=== PATIENT | male | born 1960 | race Caucasian/White ===

== ENCOUNTER 2023-05-19 06:33 | Day surgery (SDC) | payer OTHER, SELFPAY ==
[2023-05-19 06:57] VITALS: BP 146/68; PULSE 75; RESP 18; TEMP 36.2; O2SAT 100; BMI 33.0
[2023-05-19] MEDS: Lactated Ringers 1,000 ML 15 ML IV (07:01)
--- NOTE | 2023-05-19 08:10 | RAD_ITS ---
STUDY: LEFT L4-S1 RADIOFREQUENCY ABLATION. REASON FOR EXAM: Male, 62 years old. RADIO FREQ ABLATION L4-S1,LEFT FLUOROSCOPY TIME (if supplied): ( 13 seconds ) minutes/seconds. 9.15 mGy. 9 images were submitted. FINDINGS: Intraoperative imaging provided for left L4-S1 radiofrequency ablation. RAD/Lumbar Spine 2 or 3 Views IMPRESSION: Intraoperative imaging provided for left L4-S1 radiofrequency ablation. Electronically Signed: Ricardo Redmond MD at 10:09 EST ,
[2023-05-19] MEDS: Lidocaine 1% (30 ml sdv) 30 ML Vial (08:17)
[2023-05-19] MEDS: MethylPREDNISolone Acetate 40 MG/ML Vial IM (08:17)
--- NOTE | 2023-05-19 08:29 | PCM.OPRPT ---
Report of Operation Date of Procedure: 05/19/23 Pre-Operative Diagnosis: Lumbosacral spondylosis, lumbosacral degenerative disc disease, lumbar facet arthropathy Post-Operative Diagnosis: Lumbosacral spondylosis, lumbosacral degenerative disc disease, lumbar facet arthropathy Surgery/Procedure Performed:: Left-sided lumbar radiofrequency ablation of the medial branch L4, L5, S1 Type of Anesthesia: MAC Estimated Blood Loss (mL): Minimal Description of Procedure: History and physical today was reviewed. Risks and benefits of procedure explained. The patient understood, agreed to the procedure and informed consent was obtained. IV inserted per routine protocol. The patient was taken to the operating room, placed in the prone position with a pillow positioned underneath the abdomen. The left side of the lower back was prepped and draped in a sterile fashion using iodine x 3. Under fluoroscopy guidance, on an oblique view, the L3 through S1 vertebral bodies were visualized. The skin and subcutaneous tissue was anesthetized with approximately 10 mL of 1% lidocaine using a 25-gauge regular needle. Under direct visualization with fluoroscopy at approximately 25-degree angle, starting on the left L3, ending on the left S1 passing through the L4-L5 using a 20-gauge 15 cm with a 10 mm curved active tip radiofrequency ablation needle the needle passed through the skin. The tip of the needle was maneuvered and directed towards the superior and medial gutter of the transverse process at the vicinity of the medial branch. Once the tip of the needle was in contact with the bone, the needle pulled approximately 2 mm up the bone. The stylet of each needle was then removed. After negative aspiration of blood with CSF and confirmation of AP as well as oblique view, radiofrequency ablation probe was then inserted at each level. Impedance was then recorded at L3 to be 291, at L4 335, at L5 226, at S1 210 ohm. Motor-evoked potential was then initiated to 1.5 volt without any motor response at each corresponding level. The probe was then removed intact and a total of 6 mL preservative-free 1% lidocaine was injected in divided doses between those 4 levels after negative aspiration of blood with CSF. The radiofrequency ablation probe was then reinserted after confirmation of AP, oblique as well as lateral view. Radiofrequency ablation was then initiated to 80 degrees Celsius for 90 seconds at each level. Once concluded, the probe was then removed intact and a total of 6 mL of preservative-free 0.25% Marcaine with 40 mg Depo-Medrol was injected in divided doses between those 4 levels. The needles were then removed intact. The patient experienced no signs or symptoms of intrathecal, intravascular injection. The patient experienced no paraesthesia. The procedure was completed without any apparent difficulty, any complication. The patient appeared to tolerate well. Sensory as well as motor exam was unchanged from prior to procedure. ASSESSMENT AND PLAN: This is a 62-year-old male with lumbosacral spondylosis, lumbosacral degenerative disc disease, lumbar facet arthropathy, status post left-sided lumbar radiofrequency ablation of the medial branch L4 through S1. The patient will continue his current medications. The patient will follow up in approximately 2 weeks for reevaluation. Complications None
[2023-05-19 08:30] VITALS: BP 134/84; BP 146/68; PULSE 66; RESP 16; TEMP 36.3; O2SAT 96
[2023-05-19 08:35] VITALS: BP 126/85; BP 146/68; PULSE 63; RESP 16; O2SAT 95
[2023-05-19 08:39] VITALS: BP 135/90; BP 146/68; PULSE 87; RESP 16; O2SAT 98
[2023-05-19 08:40] VITALS: BP 138/93; BP 146/68; PULSE 70; RESP 16; TEMP 36.2; O2SAT 98
[2023-05-19 09:02] VITALS: BP 146/68
== END 2023-05-19 09:04 | disposition home or self-care (01) ==
LOC: SDC 06:36 → AC 06:36
PROVIDERS: Referring Provider Anesthesiology Pain Medicine; Visit Provider Anesthesiology Pain Medicine
PROC: (CPT 64635; principal; 2023-05-19 08:25)
DX: M47.816 Spondylosis without myelopathy or radiculopathy, lumbar region (principal); M51.37 Other intervertebral disc degeneration, lumbosacral region; M47.817 Spondylosis without myelopathy or radiculopathy, lumbosacral region; Z87.891 Personal history of nicotine dependence; I25.10 Atherosclerotic heart disease of native coronary artery without angina pectoris; K21.9 Gastro-esophageal reflux disease without esophagitis
CPT/HCPCS: 64635; 64636; 72100; 76000; J7120

== ENCOUNTER 2023-09-15 05:48 | Day surgery (SDC) | payer OTHER, SELFPAY ==
--- OUTSIDE RECORDS SUMMARY | 2023-09-15 06:01 | XMS RPT_ITS | CCD ---
Author Name Unknown Address [address] [place] [address] Organization [facility] Care Team Providers Care Bilingual Medical Assistant Name Role Phone PROVIDER, UNKNOWN Unavailable Unavailable No, PCP Unavailable Unavailable FRANCISCO LOJA Unavailable Unavailable BARRON MACIAS, KOMAL CANNON Primary Care Physician [phone] KOMAL MART MD Primary Care Physician [phone] OPALBERRICK ROSA, MAMIE Primary Care Physician Unavailable Primary Care Provider UnavailRUBIO [place] Attending Unavailable RUBIO GUSMAN Referring Unavailable ROMANA BERRY Attending Unavailable ROMANA BERRY Referring Unavailable CUBBERRICK ROSA, MAMIE Primary Care Physician ANGEL MORALES Admitting Unavailable KOMAL MART MD Consulting Unavailable ANGEL MORALES Attending Unavailable ANGEL MORALES Primary Care Unavailable PROVIDER, UNKNOWN Consulting Unavailable PROVIDER, UNKNOWN Consulting Unavailable PROVIDER, UNKNOWN Consulting Unavailable CUBBERLEY DO, MAMIE Primary Care Unavailable CUBBERLEY DO, MAMIE Attending Unavailable CUBBERLEY DO, MAMIE Primary Care Unavailable CUBBERLEY DO, MAMIE Attending Unavailable CUBBERLEY DO, MAMIE Primary Care Unavailable CUBBERLEY DO, MAMIE Attending Unavailable CUBBERLEY DO, MAMIE Primary Care Unavailable CUBBERLEY DO, MAMIE Attending Unavailable CUBBERLEY DO, MAMIE Primary Care Unavailable ESPERANZA TRAVIS MD Attending Unavailable CUBBERLEY DO, MAMIE Primary Care Unavailable CUBBERLEY DO, MAMIE Attending Unavailable CUBBERLEY DO, MAMIE Primary Care Unavailable ANGELICA MCKEON MD Attending Unavailable CUBBERLEY DO, MAMIE Primary Care Unavailable CUBBERLEY DO, MAMIE Attending Unavailable CUBBERLEY DO, MAMIE Primary Care Unavailable CUBBERLEY DO, MAMIE Attending Unavailable CUBBERLEY DO, MAMIE Primary Care Unavailable CUBBERLEY DO, MAMIE Attending Unavailable CUBBERLEY DO, MAMIE Primary Care Unavailable CUBBERLEY DO, MAMIE Attending Unavailable CUBBERLEY DO, MAMIE Primary Care Unavailable JULIO KATZ Attending Unavailable CUBBERLEY DO, MAMIE Primary Care Unavailable CUBBERLEY DO, MAMIE Attending Unavailable CUBBERLEY DO, MAMIE Primary Care Unavailable MICHEAL MACIAS, DR LEIGH Attending Unavailab le CUBBERLEY DO, MAMIE Primary Care Unavailable MICHEAL MACIAS, DR LEIGH Attending Unavailab le CUBBERLEY DO, MAMIE Primary Care Unavailable MD KELLE PAYAN Attending Unavailable CUBBERLEY DO, MAMIE Primary Care Unavailable CUBBERLEY DO, MAMIE Attending Unavailable CUBBERLEY DO, MAMIE Primary Care Unavailable MICHEAL MACIAS, DR LEIGH Attending Unavailab le CUBBERLEY DO, MAMIE Primary Care Unavailable CUBBERLEY DO, MAMIE Attending Unavailable CUBBERLEY DO, MAMIE Primary Care Unavailable ANGELICA MCKEON MD Attending Unavailable CUBBERLEY DO, MAMIE Primary Care Unavailable CUBBERLEY DO, MAMIE Attending Unavailable CUBBERLEY DO, MAMIE Primary Care Unavailable CUBBERLEY DO, MAMIE Attending Unavailable CUBBERLEY DO, MAMIE Primary Care Unavailable MICHEAL MACIAS, DR LEIGH Attending Unavailab le CUBBERLEY DO, MAMIE Primary Care Unavailable CUBBERLEY DO, MAMIE Attending Unavailable CUBBERLEY DO, MAMIE Primary Care Unavailable CUBBERLEY DO, MAMIE Attending Unavailable CUBBERLEY DO, MAMIE Primary Care Unavailable CUBBERLEY DO, MAMIE Attending Unavailable CUBBERLEY DO, MAMIE Primary Care Unavailable CUBBERLEY DO, MAMIE Attending Unavailable CUBBERLEY DO, MAMIE Primary Care Unavailable CUBBERLEY DO, MAMIE Attending Unavailable CUBBERLEY DO, MAMIE Primary Care Unavailable CUBBERLEY DO, MAMIE Attending Unavailable CUBBERLEY DO, MAMIE Primary Care Unavailable CUBBERLEY DO, MAMIE Attending Unavailable CUBBERLEY DO, MAMIE Primary Care Unavailable CUBBERLEY DO, MAMIE Attending Unavailable CUBBERLEY DO, MAMIE Primary Care Unavailable CUBBERLEY DO, MAMIE Attending Unavailable CUBBERLEY DO, MAMIE Primary Care Unavailable CUBBERLEY DO, MAMIE Attending Unavailable CUBBERLEY DO, MAMIE Primary Care Unavailable CUBBERLEY DO, MAMIE Attending Unavailable NAUN HDEZ MD Attending Unavailable [facility], MAMIE Primary Care Unavailable [facility], MAMIE Primary Care Unavailable MICHEAL MACIAS, DR LEIGH Attending UnavailJOSE [place] Attending Unavailable [facility], MAMIE Primary Care Unavailable [facility], MAMIE Primary Care Unavailable [facility], MAMIE Attending Unavailable Allergies Allergy Classification Reported Allergen(s) Allergy Type Date of Onset Reaction(s) Facility (5 sources) misc non-codified allergy 1 Drug allergy [facility] Medications Current Medications Medication Drug Class(es) Dates Sig (Normalized) Sig (Original) acetaminophen 500 mg oral tablet (20 sources) Start: 05-22-2022 Tylenol Extra Strength 500 mg oral tablet Dose : 1,000 mg = 2 tab(s), Oral, q4h, PRN as needed for pain, 0 Refill(s) Start Date: 05/22/22 Status: Ordered Completed/Discontinued Medications Medication Drug Class(es) Dates Sig (Normalized) Sig (Original) amLODIPine 10 mg oral tablet (9 sources) Dihydropyridine Calcium Channel Melissa Start: 06-28-2022 End: 01-26-2023 amLODIPine 10 mg oral tablet Dose : 10 mg = 1 tab(s), Oral, qDay, # 30 tab(s), 5 Refill(s), Pharmacy: [id number], 177.8, cm, 07/30/22 15:26:00 EST, Height, kg, 07/30/22 15:26:00 EST, Dosing Weight Start Date: 07/30/22 Stop Date: 01/26/23 Status: Ordered Problems Active Problems Problem Classification Problem Date Documented Da te Episodic/Chronic Abdominal pain (5 sources) Abdominal pain; Translations: [Unspecified abdominal pain] Onset: 07-15-2023 Episodic Acute cerebrovascular disease (2 sources) Nontraumatic intracranial hemorrhage, unspecified; Translations: [Nontraumatic intracranial hemorrhage, unspecified] Onset: 11-29-2017 Chronic Calculus of urinary tract (20 sources) History of calculus of kidney; Translations: [Ureteric stone] Onset: 08-03-2023 11-26-2021 Episodic Past or Other Problems Problem Classification Problem Date Documented Date Episodic/Chronic Noninfectious gastroenteritis (14 sources) Chronic diarrhea; Translations: [Noninfective gastroenteritis and colitis, unspecified] Onset: 02-01-2023 01-28-2023 Episodic Other connective tissue disease (2 sources) Cramp and spasm; Translations: [Cramp and spasm] Onset: 01-20-2023 Episodic Other lower respiratory disease (2 sources) Dyspnea, unspecified; Translations: [Dyspnea, unspecified] Onset: 03-19-2023 Episodic Other nervous system disorders (2 sources) Anesthesia of skin; Translations: [Anesthesia of skin] Onset: 01-31-2023 Episodic Results Test Name Value Interpretation Reference Range Facil ity Vital Signs Date Time Vital Sign Value Performing Clinician Faci lity 08-03-2023 16:54-0500 Diastolic Blood Pressure Non-Invasive 87 mm[Hg] NAUN HDEZ MD [address] [place] [address] 08-03-2023 16:54-0500 Heart rate 93 /min NAUN HDEZ MD [address] 08-03-2023 16:54-0500 Respiratory rate 16 /min NAUN HDEZ MD [facility] 08-03-2023 16:54-0500 Systolic Blood Pressure Non-Invasive 141 mm[Hg] NAUN HDEZ MD [facility] 08-03-2023 15:00-0500 Diastolic Blood Pressure Non-Invasive 90 mm[Hg] NAUN HDZE MD [facility] 08-03-2023 15:00-0500 Systolic Blood Pressure Non-Invasive 146 mm[Hg] NAUN HDEZ MD [facility] 08-03-2023 12:19-0500 Body temperature 98.42 [degF] NAUN HDEZ MD [address] 08-03-2023 12:19-0500 Body weight 104.2 kg NAUN HDEZ MD [address] [place] [address] 08-03-2023 12:19-0500 Diastolic Blood Pressure Non-Invasive 101 mm[Hg] NAUN HDEZ MD [address] [place] [address] 08-03-2023 12:19-0500 Heart rate 90 /min NAUN HDEZ MD [facility] 08-03-2023 12:19-0500 Respiratory rate 18 /min NAUN HDEZ MD [facility] 08-03-2023 12:19-0500 Systolic Blood Pressure Non-Invasive 144 mm[Hg] NAUN HDEZ MD [facility] 04-03-2023 06:45-0400 Diastolic Blood Pressure Non-Invasive 94 1 JOSE VIEYRAAskYou [facility] 04-03-2023 06:45-0400 Heart rate 76 /min JOSE VIEYRAAskYou [facility] 04-03-2023 06:45-0400 Respiratory rate 18 /min JOSE RODGERSNubleer Media [facility] 04-03-2023 06:45-0400 Systolic Blood Pressure Non-Invasive 136 1 JOSE VIEYRACswitch [facility] 04-03-2023 05:30-0400 Diastolic Blood Pressure Non-Invasive 83 1 JOSE VIEYRACswitch [facility] 04-03-2023 05:30-0400 Heart rate 67 /min JOSE VIEYRACswitch [facility] 04-03-2023 05:30-0400 Respiratory rate 16 /min JOSE VIEYRACswitch [facility] 04-03-2023 05:30-0400 Systolic Blood Pressure Non-Invasive 122 1 JOSE RODGERSNubleer Media [facility] 04-03-2023 02:36-0400 Diastolic Blood Pressure Non-Invasive 77 1 JOSE VIEYRACswitch [facility] 04-03-2023 02:36-0400 Heart rate 88 /min JOSE VIEYRACswitch [facility] 04-03-2023 02:36-0400 Respiratory rate 18 /min JOSE RODGERSDemi ROSA [facility] 04-03-2023 02:36-0400 Systolic Blood Pressure Non-Invasive 114 1 [facility]ITAL[facility]i [facility] 04-03-2023 00:05-0400 Body temperature 96.8 [degF] [facility] 03-27-2023 10:00-0400 Diastolic Blood Pressure Non-Invasive [address] REESE BURTON MD [address] [place] [address] 03-27-2023 10:00-0400 Heart rate 77 /min DR REESE BURTON MD [address] [place] [address] 03-27-2023 10:00-0400 Systolic Blood Pressure Non-Invasive [address] REESE BURTON MD [address] [place] [address] 03-27-2023 09:22-0400 Blood Pressure Cuff Size DR REESE BURTON MD [address] [place] [address] 03-27-2023 09:22-[address] REESE BURTON MD [address] [place] [address] 03-27-2023 09:22-[address] REESE BURTON MD [address] [place] [address] 03-27-2023 09:22-0400 Diastolic Blood Pressure Non-Invasive [address] REESE BURTON MD [address] [place] [address] 03-27-2023 09:22-0400 Heart rate 74 /min DR REESE BURTON MD [address] [place] [address] 03-27-2023 09:22-0400 Respiratory rate 18 /min DR REESE BURTON MD [address] [place] [address] 03-27-2023 09:22-0400 Systolic Blood Pressure Non-Invasive [address] REESE BURTON MD [address] [place] [address] 03-27-2023 05:12-[address] REESE BURTON MD [address] [place] [address] 03-27-2023 05:12-[address] REESE BURTON MD [address] [place] [address] 03-27-2023 05:12-0400 Body height 177.[address] REESE BURTON MD [address] [place] [address] 03-27-2023 05:12-0400 Body temperature 98.42 [degF] DR REESE BURTON MD [address] [place] [address] 03-27-2023 05:12-0400 Body weight 100.[address] REESE BURTON MD [address] [place] [address] 03-27-2023 05:12-0400 Diastolic Blood Pressure Non-Invasive [address] REESE BURTON MD [address] [place] [address] 03-27-2023 05:12-0400 Heart rate 85 /min DR REESE BURTON MD [address] [place] [address] 03-27-2023 05:12-0400 Respiratory rate 16 /min DR REESE BURTON MD [address] [place] [address] 03-27-2023 05:12-0400 Systolic Blood Pressure Non-Invasive [address] REESE BURTON MD [address] [place] [address] 10-14-2022 16:24-0400 Body temperature 98.1 [degF] Rubio Gusman DIRECTOR OF STUDENT [employer] Work Phone: [facility] 10-14-2022 16:24-0400 Body weight 100.88 kg Rubio Gusman DIRECTOR OF STUDENT [employer] Work Phone: [facility] 10-14-2022 16:24-0400 Diastolic blood pressure 92 mm[Hg] Rubio Gusman DIRECTOR OF STUDENT [employer] Work Phone: [facility] 10-14-2022 16:24-0400 Heart rate 106 /min Rubio Gusman DIRECTOR OF STUDENT [employer] Work Phone: [facility] 10-14-2022 16:24-0400 Respiratory rate 22 /min Rubio Gusman DIRECTOR OF STUDENT [employer] Work Phone: [facility] 10-14-2022 16:24-0400 SaO2% (BldA) [Mass fraction] 95 % Rubio Gusman DIRECTOR OF [employer]UDENT [employer] Work Phone: [facility] 10-14-2022 16:24-0400 Systolic blood pressure 154 mm[Hg] Rubio Gusman DIRECTOR OF STUDENT [employer] Work Phone: [facility] 06-04-2022 04:01-0500 Diastolic Blood Pressure Non-Invasive 65 1 ANGEL MAST MD [facility] 06-04-2022 04:01-0500 Heart rate 95 /min ANGEL MAST MD [facility] 06-04-2022 04:01-0500 Respiratory rate 16 /min ANGEL MAST MD [facility] 06-04-2022 04:01-0500 Systolic Blood Pressure Non-Invasive 90 1 ANGEL MAST MD [facility] 06-04-2022 00:36-0500 Body temperature 97.52 [degF] ANGEL MAST MD [facility] 06-04-2022 00:36-0500 Body weight 90.5 kg ANGEL MAST MD [facility] 06-04-2022 00:36-0500 Diastolic Blood Pressure Non-Invasive 80 1 ANGEL MAST MD [facility] 06-04-2022 00:36-0500 Heart rate 20 /min ANGEL MAST MD [facility] 06-04-2022 00:36-0500 Respiratory rate 20 /min ANGEL MAST MD [facility] 06-04-2022 00:36-0500 Systolic Blood Pressure Non-Invasive 118 1 ANGEL MAST MD [facility] 01-14-2022 20:57-0400 Body temperature 95.72 [degF] CYNDY WHITT MD [facility] 01-14-2022 20:57-0400 Body weight 99.7 kg CYNDY WHITT MD [facility] 01-14-2022 20:57-0400 Diastolic blood pressure 95 mm[Hg] CYNDY WHITT MD [facility] 01-14-2022 20:57-0400 Heart rate 83 /min CYNDY WHITT MD [facility] 01-14-2022 20:57-0400 Respiratory rate 18 /min CYNDY WHITT MD [facility] 01-14-2022 20:57-0400 Systolic blood pressure 156 mm[Hg] CYNDY WHITT MD [facility] Encounters Encounter Date Encounter Type Care Provider Facility Start: 09-12-2023 ambulatory MAMIENELY DALALLEY DO Faci lity:B Start: 09-01-2023 End: 09-01-2023 Emergency department patient visit ANGEL Gtz ANDREW [facility] Start: 08-19-2023 End: 08-24-2023 ambulatory MAMIENELY DALALLEY DO Facility:B Start: 08-19-2023 End: 08-23-2023 Outreach Lab MAMIENELY DALALLEY DO [facility] Start: 08-06-2023 End: 08-11-2023 ambulatory MAMIE OPALBERLEY DO Facility:B Start: 08-06-2023 End: 08-10-2023 Outreach Lab MAMIE DALALLEY DO [facility] Start: 08-03-2023 End: 08-03-2023 Emergency department patient visit NAUN HDEZ MD Facility:A Start: 08-03-2023 End: 08-03-2023 Emergency department patient visit NAUN HDEZ MD [facility] Start: 08-01-2023 End: 08-02-2023 ambulatory MAMIE OPALBERLEY DO Facility:A Start: 08-01-2023 End: 08-05-2023 Outreach Lab MAMIE OPALBERLEY DO [facility] Start: 07-28-2023 End: 08-02-2023 ambulatory MAMIE OPALBERLEY DO Facility:B Start: 07-28-2023 End: 08-01-2023 Outreach Lab MAMIENELY JOSEPHBERLEY DO [facility] Start: 07-18-2023 End: 07-23-2023 ambulatory MAMIE OPLABERLEY DO Facility:B Start: 07-15-2023 ambulatory MAMIE OPALBERLEY DO Faci lity:B Start: 07-15-2023 End: 07-19-2023 Outreach Lab MAMIE OPALBERLEY DO [facility] Start: 07-10-2023 End: 07-15-2023 ambulatory MAMIE OPALBERLEY DO Facility:B Start: 06-12-2023 End: 07-31-2023 ambulatory MAMIE OPALBERLEY DO Facility:A Start: 05-23-2023 End: 05-24-2023 ambulatory MAMIE OPALBERLEY DO Facility:A Start: 05-20-2023 End: 05-21-2023 ambulatory MAMIE OPALBERLEY DO Facility:A Start: 04-23-2023 End: 04-24-2023 ambulatory MAMIE CUBBERLEY DO Facility:A Start: 04-07-2023 End: 04-12-2023 ambulatory MAMIE OPALBERLEY DO Facility:B Start: 04-07-2023 End: 04-11-2023 Outreach Lab MAMIE OPALBERLEY DO [facility] Start: 04-07-2023 End: 04-08-2023 ambulatory MAMIE CUBBERLEY DO Facility:A Start: 04-03-2023 End: 04-03-2023 Emergency department patient visit JOSE ORLANDO Facility:A Start: 04-02-2023 End: 04-03-2023 Emergency department patient visit JOSE ORLANDO DO [facility] Start: 03-27-2023 End: 03-27-2023 ambulatory MAMIE ANGULO DO Facility:A Start: 03-27-2023 End: 03-27-[address] REESE BURTON MD [facility] Start: 03-19-2023 End: 03-24-2023 ambulatory MAMIE ANGULO DO Facility:B Start: 03-19-2023 End: 03-24-2023 ambulatory MAMIE ANGULO DO Facility:A Start: 03-03-2023 End: 03-04-2023 ambulatory MAMIE ANGULO DO Facility:A Start: 03-03-2023 End: 03-03-2023 Patient encounter procedure ESPERANZA TRAVIS MD [facility] Start: 02-17-2023 End: 02-18-2023 ambulatory MAMIE ANGULO DO Facility:A Start: 02-17-2023 End: 02-18-2023 ambulatory MAMIE ANGULO DO Facility:A Start: 02-17-2023 End: 02-17-2023 Patient encounter procedure MAMIE ANGULO DO [facility] Start: 02-05-2023 End: 02-05-2023 ambulatory ROMANAGOPAL CRUZNATALEE Facility:[id number] Start: 02-01-2023 ambulatory MAMIE ANGULO DO Faci lity:B Start: 02-01-2023 End: 02-05-2023 Outreach Lab MAMIE ANGULO DO [facility] Start: 01-31-2023 End: 02-05-2023 ambulatory MAMIE ANGULO DO Facility:B Start: 01-20-2023 End: 01-25-2023 ambulatory MAMIE ANGULO DO Facility:B Start: 01-20-2023 End: 01-24-2023 Outreach Lab MAMIE ANGULO DO [facility] Start: 10-14-2022 End: 10-14-2022 ambulatory RUBIO GUSMAN Facility:[id number] Start: 10-14-2022 End: 10-14-2022 Patient encounter procedure Rubio Gusman DIRECTOR OF [employer] Work Phone: [facility] Procedures Date Procedure Procedure Detail Performing Clinician Start: 03-27-2023 Cardiac catheterization MAMIE ANGULO DO Plan of Treatment Date Care Activity Detail Author Start: 03-14-2023 Influenza vaccination INFLUENZA (Sea son Ended) [facility] Start: 07-14-2022 DEPRESSION ASSESSMENT DEPRESSION ASS ESSMENT [facility] Start: 2017 PROSTATE CANCER SCRE ENING DISCUSSION PROSTATE CANCER SCREENING DISCUSSION [facility] Start: 2012 SHINGRIX VACCINE (1 of 2) SHINGRIX V ACCINE (1 of 2) [facility] Start: 11-24-2007 COLOGUARD (FIT-DNA) COLOGUARD (FIT-D NA) [facility] Start: 11-24-2007 Colonoscopy COLONOSCOPY [facility] Start: 11-24-2007 COLORECTAL CANCER SCREENING COLORECTAL CANCER SCREENING [facility] Start: 11-24-[address] COLONOGRAPHY [facility] Start: 11-24-2007 DIABETES SCREEN DIABETES SCREEN [facility] Start: 11-24-2007 FECAL OCCULT BLOOD FECAL OCCULT BLOO D [facility] Start: 11-24-2007 SIGMOIDOSCOPY SIGMOIDOSCOPY [facility] Start: 1997 LIPID SCREEN LIPID SCREEN [facility] Start: 1981 Urine microalbumin profile DTAP,TDAP ,TD (1 - Tdap) [facility] Start: 1980 HEPATITIS C SCREENING HEPATITIS C SC REENING [facility] Start: 1980 HIV SCREENING HIV SCREENING [facility] Start: 05-26-1963 COVID-19 VACCINE (#1) COVID-19 VACCI NE (#1) [facility] Immunizations Immunization Date Immunization Notes Care Provider Shahrzad perez 02-17-2023 zoster vaccine recombinant; Translations: [Shingrix] MAMIE ANGULO DO [facility] 03-07-2017 tetanus toxoid, reduced diphtheria toxoid, and acellular pertussis vaccine, adsorbed MAMIE ANGULO DO [facility] Payers Date Payer Category Payer Unknown [id number] 2020 Unknown 2020 Unknown [id number] 1962 Unknown [id number] 2.16.8 40.1.690503.3.579.2. 1962 Unknown [id number] 2.16.8 40.1.842932.3.579.2. 1962 Unknown [id number] 2.16.8 40.1.546652.3.579.2. 1962 Unknown [id number] 2.16.8 40.1.396179.3.579.2. 1962 Unknown [id number] 2.16.8 40.1.904233.3.579.2. 1962 Unknown [id number] 2.16.8 40.1.346591.3.579.2. 1962 Unknown [id number] 2.16.8 40.1.599162.3.579.2. 1962 Unknown [id number] 2.16.8 40.1.045517.3.579.2. 1962 Unknown [id number] 2.16.8 40.1.026620.3.579.2. 1962 Unknown [id number] 2.16.8 40.1.894278.3.579.2. 1962 Unknown [id number] 2.16.8 40.1.721593.3.579.2. 1962 Unknown [id number] 2.16.8 40.1.330500.3.579.2. 1962 Unknown [id number] 2.16.8 40.1.138598.3.579.2. 1962 Unknown [id number] 2.16.8 40.1.134995.3.579.2. 1962 Unknown [id number] 2.16.8 40.1.851563.3.579.2. 1962 Unknown [id number] 2.16.8 40.1.311556.3.579.2. 1962 Unknown [id number] 2.16.8 40.1.494446.3.579.2. 1962 Unknown [id number] 2.16.8 40.1.827921.3.579.2. 1962 Unknown [id number] 2.16.8 40.1.724458.3.579.2. 1962 Unknown [id number] 2.16.8 40.1.550513.3.579.2. 1962 Unknown [id number] 2.16.8 40.1.165193.3.579.2. 1962 Unknown [id number] 2.16.8 40.1.652091.3.579.2. 1962 Unknown [id number] 2.16.8 40.1.288077.3.579.2. 1962 Unknown [id number] 2.16.8 40.1.819197.3.579.2. 1962 Unknown [id number] 2.16.8 40.1.435709.3.579.2. 1962 Unknown [id number] 2.16.8 40.1.938714.3.579.2.627 1962 Unknown [id number] 2.16.8 40.1.178015.3.579.2. 1962 Unknown [id number] 2.16.8 40.1.611223.3.579.2. 1962 Unknown [id number] 2.16.8 40.1.227534.3.579.2. 1962 Unknown [id number] 2.16.8 40.1.809270.3.579.2. 1962 Unknown [id number] 2.16.8 40.1.164115.3.579.2. 1962 Unknown [id number] 2.16.8 40.1.390417.3.579.2. 1962 Unknown [id number] 2.16.8 40.1.346956.3.579.2. 1962 Unknown [id number] 2.16.8 40.1.073549.3.579.2. 1962 Unknown [id number] 2.16.8 40.1.188089.3.579.2. 1962 Unknown [id number] 2.16.8 40.1.647129.3.579.2. 1962 Unknown [id number] 2.16.8 40.1.870341.3.579.2. 1962 Unknown [id number] 2.16.8 40.1.853498.3.579.2. 1962 Unknown [id number] 2.16.8 40.1.169981.3.579.2.651 Social History Date Type Detail Facility Start: 06-26-2019 End: 06-19-2021 Ex-smoker (finding) [facility] Functional Status Date Assessment Result Facility 08-03-2023 Functional Status Independent [facility] 08-03-2023 Functional Status Standard Safet y ID band on, Call device within reach, Bed in low position, Wheels locked, Phone within reach, personal items within reach, Bedside Cart Locked, Visitor at bedside, Safety level maintained, Hazards removed from floor [facility] 04-03-2023 Functional Status ID band on, Call device within reach, Bed in low position, Wheels locked [facility] 03-27-2023 Functional Status Independent [facility] 03-27-2023 Functional Status Maintained [facility] 01-14-2022 Functional Status Standard Safet y ID band on, Call device within reach, Bed in low position, Wheels locked, Bedside Cart Locked, Visitor at bedside [facility] Mental Status Date Assessment Result Facility 08-03-2023 Mental Status Orientation Oriented x 4 [facility] 08-03-2023 Mental Status [facility] 04-03-2023 Mental Status Oriented x 4 [facility] 03-27-2023 Mental Status Oriented x 4 [facility] 03-27-2023 Mental Status [facility] 01-14-2022 Mental Status Orientation Oriented x 4 [facility] Clinical Notes 05-23-2021 to 08-03-2023 Note Date & Type Note Facility 08-03-2023 Hospital Discharge instructions Patient Education 08/03/2023 16:37:59 Kidney Stone, Undescended (No Symptoms) Kidney Stone, Undescended, No Symptoms A kidney stone (nephrolithiasis) begins as tiny crystals that form inside the kidney where urine is made. Most kidney stones enlarge to about 1/8 to 1/4 inch in size before leaving the kidney and moving toward the bladder. There are 4 types of kidney stones. Eighty percent are calcium stones mostly calcium oxalate but also some with calcium phosphate. The other 3 types include uric acid stones, struvite stones (from a preceding infection), and rarely, cystine stones. When the stone breaks free and begins to move down the ureter (the narrow tube joining the kidney to the bladder) it often causes sharp back and side pain, often with nausea and vomiting. When the stone reaches the bladder, the pain stops. Once in your bladder, the kidney stone may pass through the urethra (urinary opening) while you are urinating (which may cause pain to start again). Or, it may break into such small fragments that you don t notice it passing. Your kidney stone is still inside the kidney. There is no way to predict how long it will be before it breaks free and causes any symptoms. Most stones will pass on their own within a few hours to a few days (sometimes longer). You may notice a red, pink, or brown color to your urine. This is normal while passing a kidney stone. A large stone may not pass on its own and may require special procedures to remove it. These procedures include lithotripsy, which uses ultrasound waves to break up the stone; ureteroscopy, which pushes a thin, basket-like instrument through the urethra and bladder and into the ureter to pull out the stone; and various types of direct surgery through the skin. Home care The following guidelines will help you care for yourself at home: Drink plenty of fluids. This increases urine flow and reduces the risk of further stone formation. Healthy adults (no heart/liver/kidney disease) who have had a kidney stone should drink 12, 8-ounce glasses of fluids per day. Most of this should be water. The goal is to produce 1.5 to 2 quarts of almost colorless urine per 24 hours. You should collect your urine in a container and then drain it through a strainer to collect any stones or pieces of stones. Take these to your healthcare provider to help identify your specific type of stone to aid in future treatment and dietary changes. Try to stay as active as possible since this will help the stone pass. Don't stay in bed unless you have pain that prevents you from getting up. If you develop pain, you may take ibuprofen or naproxen for pain, unless another medicine was prescribed. If you have chronic liver or kidney disease or ever had a stomach ulcer or GI bleeding, talk with your healthcare provider before using these medicines. Prevention Each year, there is a 5% to 10% chance that a new stone will form (50% chance over the next 5 to 7 years). The risk is higher if you have a family history of kidney stones or have certain chronic illnesses such as hypertension, obesity, or diabetes. However, there are lifestyle and dietary changes that you can make to reduce the risk of a recurrence. Most kidney stones are made of calcium. The following is advice for preventing a recurrence of calcium stones. If you don t know the type of stone you have, follow this advice until the cause of your stone is determined. Things that help: The most important thing you can do is to drink plenty of fluids each day, as described above. Certain foods, such as wheat, rice, rye, barley and beans, contain phytate, a compound that may lower the risk of recurrence of any type of stone. Eat more fruits and vegetables (especially those high in potassium). Eat foods high in natural citrate like fruit and fruit juices (using low sugar). Low calcium contributes to the formation of calcium type kidney stones. Eat a normal calcium diet and speak with your doctor if you are taking calcium supplements. It may be detrimental to reduce your calcium intake. New research shows that eating calcium-rich and oxalate-rich foods together lowers your risk of stones by binding the minerals in the stomach and intestines before they can reach the kidneys. Limit salt intake to 2 grams (1 teaspoon) per day. Use limited amounts when cooking, and don t add salt at the table. Processed and canned foods are usually high in salt. Spinach, rhubarb, peanuts, cashews and almonds, grapefruit and grapefruit juice are all high oxalate foods and should be reduced, or eaten with calcium rich foods. These foods include dairy, dark leafy greens, soy products, and calcium enriched foods. Reducing the amount of animal meat in your diet may lower your risk of uric acid stones. Don't have excess sugar (sucrose) and fructose (sweetener in many soft drinks) in your diet. If you take vitamin C as a supplement, do not take more than 1,000 milligrams (mg) per day. A dietitian or your healthcare provider can provide you with specific details about dietary changes to prevent kidney stone recurrence. Follow-up care Follow up with your healthcare provider, or as advised. Talk with your healthcare provider about urine and blood tests to find out the cause of your stone. If you had an X-ray, CT scan, or other diagnostic test, you will be notified of any findings that may affect your care. Call 911 Call 911 if you have any of these: Weakness, dizziness, or fainting When to seek medical advice Call your healthcare provider right away if any of the these occur: Severe sharp back or side pain Repeated vomiting or unable to keep down fluids Fever of 100.4 F (38 C) or higher, or as directed by your health care provider Blood (pink or red color) in your urine Foul smelling or cloudy urine Unable to pass urine for 8 hours or increasing bladder pressure [employer]. [address] [place] [address]. All rights reserved. This information is not intended as a substitute for professional medical care. Always follow your healthcare professional's instructions. 08/03/2023 16:37:46 Hypokalemia Hypokalemia Hypokalemia means a low level of potassium in the blood. This most often occurs in people who take water pills (diuretics). It can also occur because of severe vomiting or diarrhea. You may also have it if you take laxatives for long periods of time. It sometimes happens if you have low magnesium (hypomagnesemia). If you have this, your healthcare provider will treat the low magnesium first. A mild case of hypokalemia usually causes no symptoms. It is only found with blood testing. More severe potassium loss causes overall weakness, muscle or abdominal cramps, rapid or irregular heartbeats (heart palpitations), low blood pressure, and muscle weakness. Home care Take any potassium supplements as prescribed. Eat foods rich in potassium. The highest amount is found in avocado, baked potatoes, spinach, cantaloupe, cod, halibut, salmon, and scallops. White, red, or gutierrez beans are also very good sources. A modest amount of potassium is found in orange juice, bananas, carrots, and tomato juice. If you take certain types of diuretics, you will also need to take potassium supplements. If you take a diuretic, discuss potassium supplements with your doctor. Follow-up care Follow up with your healthcare provider for a repeat blood test within the next week, or as advised by our staff. When to seek medical advice Call your healthcare provider right away if any of the following occur: Increased weakness, fatigue, or muscle cramps Dizziness Call 911 Call 911 if any of the following occur: Irregular heartbeat, extra beats, or very fast heart rate Loss of consciousness [employer]. [address] [place] [address]. All rights reserved. This information is not intended as a substitute for professional medical care. Always follow your healthcare professional's instructions. 08/03/2023 16:37:44 Hypertension, Established Established High Blood Pressure High blood pressure (hypertension) is a chronic disease. Often, healthcare providers don t know what causes it. But it can be caused by certain health conditions and medicines. If you have high blood pressure, you may not have any symptoms. If you do have symptoms, they may include headache, dizziness, changes in your vision, chest pain, and shortness of breath. But even without symptoms, high blood pressure that s not treated raises your risk for heart attack, heart failure, and stroke. High blood pressure is a serious health risk and shouldn t be ignored. Blood pressure measurements are given as 2 numbers. Systolic blood pressure is the upper number. This is the pressure when the heart contracts. Diastolic blood pressure is the lower number. This is the pressure when the heart relaxes between beats. You will see your blood pressure readings written together. For example, a person with a systolic pressure of 118 and a diastolic pressure of 78 will have 118/78 written in the medical record. Blood pressure is categorized as normal, elevated, or stage 1 or stage 2 high blood pressure: Normal blood pressure is systolic of less than 120 and diastolic of less than 80 (120/80) Elevated blood pressure is systolic of 120 to 129 and diastolic less than 80 Stage 1 high blood pressure is systolic is 130 to 139 or diastolic between 80 to 89 Stage 2 high blood pressure is when systolic is 140 or higher or the diastolic is 90 or higher Home care If you have high blood pressure, follow these home care guidelines to help lower your blood pressure. If you are taking medicines for high blood pressure, these methods may reduce or end your need for medicines in the future. Start a weight-loss program if you are overweight. Cut back on how much salt you get in your diet. Here s how to do this: oDon t eat foods that have a lot of salt. These include olives, pickles, smoked meats, and salted potato chips. oDon t add salt to your food at the table. oUse only small amounts of salt when cooking. Start an exercise program. Talk with your healthcare provider about the type of exercise program that would be best for you. It doesn't have to be hard. Even brisk walking for 20 minutes 3 times a week is a good form of exercise. Don t take medicines that stimulate the heart. This includes many ntjn-bqf-xyduble cold and sinus decongestant pills and sprays, as well as diet pills. Check the warnings about high blood pressure on the label. Before buying any npfz-vlv-sryflav medicines or supplements, always ask the pharmacist about the product's potential interaction with your high blood pressure and your high blood pressure medicines. Stimulants such as amphetamine or cocaine could be deadly for someone with high blood pressure. Never take these. Limit how much caffeine you get in your diet. Switch to caffeine-free products. Stop smoking. If you are a long-time smoker, this can be hard. Talk to your healthcare provider about medicines and nicotine replacement options to help you. Also, enroll in a stop-smoking program to make it more likely that you will quit for good. Learn how to handle stress. This is an important part of any program to lower blood pressure. Learn about relaxation methods like meditation, yoga, or biofeedback. If your provider prescribed medicines, take them exactly as directed. Missing doses may cause your blood pressure get out of control. If you miss a dose or doses, check with your healthcare provider or pharmacist about what to do. Consider buying an automatic blood pressure machine to check your blood pressure at home. Ask your provider for a recommendation. You can get one of these at most pharmacies. The [employer] recommends the following guidelines for home blood pressure monitoring: Don't smoke or drink coffee for 30 minutes before taking your blood pressure. Go to the bathroom before the test. Relax for 5 minutes before taking the measurement. Sit with your back supported (don't sit on a couch or soft chair); keep your feet on the floor uncrossed. Place your arm on a solid flat surface (like a table) with the upper part of the arm at heart level. Place the middle of the cuff directly above the bend of the elbow. Check the monitor's instruction manual for an illustration. Take multiple readings. When you measure, take 2 to 3 readings one minute apart and record all of the results. Take your blood pressure at the same time every day, or as your healthcare provider recommends. Record the date, time, and blood pressure reading. Take the record with you to your next medical appointment. If your blood pressure monitor has a built-in memory, simply take the monitor with you to your next appointment. Call your provider if you have several high readings. Don't be frightened by a single high blood pressure reading, but if you get several high readings, check in with your healthcare provider. Note: When blood pressure reaches a systolic (top number) of 180 or higher OR diastolic (bottom number) of 110 or higher, seek emergency medical treatment. Follow-up care You will need to see your healthcare provider regularly. This is to check your blood pressure and to make changes to your medicines. Make a follow-up appointment as directed. Bring the record of your home blood pressure readings to the appointment. When to seek medical advice Call your healthcare provider right away if any of these occur: Blood pressure reaches a systolic (upper number) of 180 or higher OR a diastolic (bottom number) of 110 or higher Chest pain or shortness of breath Severe headache Throbbing or rushing sound in the ears Nosebleed Sudden severe pain in your belly (abdomen) Extreme drowsiness, confusion, or fainting Dizziness or spinning sensation (vertigo) Weakness of an arm or leg or one side of the face You have problems speaking or seeing [id number] [employer]. [address] [place] [address]. All rights reserved. This information is not intended as a substitute for professional medical care. Always follow your healthcare professional's instructions. 08/03/2023 16:37:37 Flank Pain, Uncertain Cause Flank Pain, Uncertain Cause The flank is the area between your upper abdomen and your back. Pain there is often caused by a problem with your kidneys. It might be a kidney infection or a kidney stone. Other causes of flank pain include spinal arthritis, a pinched nerve from a back injury, or a back muscle strain or spasm. The cause of your flank pain is not certain. You may need other tests. Home care Follow these tips when caring for yourself at home: You may use acetaminophen or ibuprofen to control pain, unless your health care provider prescribed another medicine. If you have chronic liver or kidney disease, talk with your provider before taking these medicines. Also talk with your provider first if you ve ever had a stomach ulcer or GI bleeding. If the pain is coming from your muscles, you may get relief with ice or heat. During the first 2 days after the injury, put an ice pack on the painful area for 20 minutes every 2 to 4 hours. This will reduce swelling and pain. A hot shower, hot bath, or heating pad works well for a muscle spasm. You can start with ice, then switch to heat after 2 days. You might find that alternating ice and heat works well. Use the method that feels the best to you. Follow-up care Follow up with your healthcare provider if your symptoms don t get better over the next few days. When to seek medical advice Call your healthcare provider right away if any of these happen: Repeated vomiting Fever of 100.4 F (38 C) or higher, or as directed by your health care provider Flank pain that gets worse Pain that spreads to the front of your belly (abdomen) Dizziness, weakness, or fainting Blood in your urine Burning feeling when you urinate or the need to urinate often Pain in one of your legs that gets worse Numbness or weakness in a leg [id number] [employer]. [address] [place] [address], [place] [address]. All rights reserved. This information is not intended as a substitute for professional medical care. Always follow your healthcare professional's instructions. 08/03/2023 16:37:29 Nonalcoholic Fatty Liver Disease (NAFLD) Nonalcoholic Fatty Liver Disease (NAFLD) Nonalcoholic fatty liver disease (NAFLD) is a common disease of the liver. It occurs when you have too much fat in the liver. If NAFLD is severe, it can cause liver damage that seems like the damage caused by drinking too much alcohol. But NAFLD is not caused by drinking alcohol. This sheet tells you more about NAFLD and how it can be managed. How the liver works The liver is an organ in the upper right side of the belly (abdomen). It has many important jobs. These include: Breaking down (metabolizing) proteins, carbohydrates, and fats Making a substance called bile that helps break down fats Storing and releasing sugar (glucose) into the blood to give the body energy Removing toxins from the blood Helping with blood clotting Understanding NAFLD A healthy liver may contain some fat. But if too much fat builds up in the liver, this causes NAFLD. NAFLD can be mild, causing fatty liver. Or it can be more severe and show inflammation, as well as the fat. This can cause non-alcoholic steatohepatitis (LEBLANC). Fatty liver. With fatty liver, the liver simply has more fat than normal. This extra fat usually does not harm the liver. LEBLANC. With LEBLANC, the fatty liver becomes inflamed over time. LEBLANC is serious because it can lead to scarring of the liver (fibrosis). Over time, the scarring may lead to cirrhosis of the liver. This can eventually cause liver failure or liver cancer. Causes and risk factors of NAFLD Doctors don't know what causes NAFLD. But certain things make the problem more likely to happen. These include: Obesity Prediabetes or diabetes High levels of fat found in the blood (cholesterol and triglycerides) Being exposed to certain medicines Symptoms of NAFLD Most people with NAFLD have no symptoms. If symptoms do occur, they can include: Tiredness Weakness Weight loss Loss of appetite Nausea and vomiting Belly pain and cramping Yellowing of the skin and eyes (jaundice), as well as dark urine, or light-colored stools Swelling in the belly or legs Diagnosing NAFLD Your healthcare provider may think you have NAFLD if routine blood tests show high levels of liver enzymes. This may mean you have a liver problem. You may need one or more imaging tests, such as an ultrasound, CT, or MRI. You may need more blood tests to look for other causes of liver disease. You may also need a liver biopsy. During this test, a hollow needle is used to remove a tiny tissue sample from your liver. This tissue is then checked in a lab. This test can find signs of damage to liver tissue. It can also help figure out the cause of the damage and tell the difference between fatty liver and LEBLANC. Treating NAFLD Treatment for NAFLD varies for each person. The best early treatment is to treat any underlying conditions causing metabolic syndrome. This is the name for a group of conditions that includes: High blood pressure High levels of cholesterol and triglycerides Being overweight or obese Diabetes Your healthcare provider will monitor your health and treat any symptoms or underlying health problems you have. Your provider will also work with you to control your risk factors. This will make liver damage less likely. In fact, treating those underlying conditions can often improve liver disease. You may need to take certain medicines, but no medicine will cure NAFLD. This is why treating the underlying conditions is most important. Your plan may include: Losing extra weight Getting regular exercise Controlling diabetes and high cholesterol or triglyceride levels Taking medicines and vitamins as prescribed by your provider Quitting smoking Not drinking alcohol Eating a healthy and balanced diet Living with NAFLD If NAFLD is caught early, it can be managed with treatment. Your healthcare provider will discuss further treatment choices with you as needed. Be sure to ask your provider about recommended vaccines. These include vaccines for viruses that can cause liver disease. [id number] [employer]. [address] [place] [address]. All rights reserved. This information is not intended as a substitute for professional medical care. Always follow your healthcare professional's instructions. Follow Up Care 08/03/2023 12:18:35 With:MAMIE ANGULO Address: [address] [place] [address] [address] [place] [address]- [phone] Business (1) When:2-4 days Comments:Schedule appointment as soon as possibleReturn to ED if symptoms worsenStop hydrochlorothiazide discussed with your primary care doctor potential alternative for your blood pressureCall in a.m. for close follow-up for repeat potassiumMay use your Flexeril and Tylenol [facility] 08-03-2023 Emergency department Discharge summary Discharge Instructions Thank you for allowing [facility] to assist you with your healthcare needs. The following is important discharge information regarding your hospital visit. Diagnosis from Today's Visit Fatty liver Flank pain Flank pain Hypertension Hypokalemia Kidney stone What to Do Next Instructions from Your Care Team No qualifying data available. Post Acute Orders No qualifying data available. You Need to Schedule the Following Appointments Follow Up with MAMIE ANGULO When Within 2-4 days Why: Schedule appointment as soon as possible Return to ED if symptoms worsen Stop hydrochlorothiazide discussed with your primary care doctor potential alternative for your blood pressure Call in a.m. for close follow-up for repeat potassium May use your Flexeril and Tylenol Where: [address] [place] [address] [address] [place] [address] [phone] Business (1) Allergies [facility] Medications Please ask your primary doctor or pharmacist before taking any other medication not listed, including over the counter drugs, herbal medications, vitamins and or supplements as they may interact with your home medications. What How Much When Instructions Last Dose Unchanged acetaminophen (Tylenol Extra Strength 500 mg oral tablet) 2 tab(s) by mouth Every 4 hours as needed for as needed for pain Unchanged aspirin (aspirin 81 mg oral delayed release tablet) 1 tab(s) by mouth Every day Duration: 30 Days Unchanged atorvastatin (atorvastatin 40 mg oral tablet) 1 tab(s) by mouth Daily at bedtime Duration: 90 Days Unchanged carvedilol (Coreg 3.125 mg oral tablet) 1 tab(s) by mouth Twice daily with meals Duration: 30 Days Unchanged cholecalciferol (cholecalciferol 50 mcg (2000 intl units) oral tablet) 1 tab(s) by mouth Every day Duration: 30 Days Unchanged cyanocobalamin (cyanocobalamin 100 mcg oral tablet) 1 tab(s) by mouth Once a day Duration: 90 Days Unchanged ferrous sulfate (ferrous sulfate 325 mg (65 mg elemental iron) oral delayed release tablet) 1 tab(s) by mouth Every other day Duration: 30 Days Unchanged furosemide (Lasix 20 mg oral tablet) 1 tab(s) by mouth Once a day Unchanged gabapentin (gabapentin 400 mg oral capsule) 1 cap by mouth Three (3) times a day Unchanged glucosamine (glucosamine 1000 mg oral capsule) 3 cap by mouth Once a day with meals Unchanged hydroCHLOROthiazide (hydroCHLOROthiazide 12.5 mg oral capsule) 1 cap by mouth Once a day Unchanged hydroCHLOROthiazide (hydroCHLOROthiazide 25 mg oral tablet) 1 tab(s) by mouth Once a day Unchanged loratadine (loratadine 10 mg oral capsule) 1 cap by mouth Once a day Duration: 90 Days Unchanged montelukast (montelukast 10 mg oral tablet) 1 tab(s) by mouth Once a day Duration: 90 Days Unchanged omeprazole (omeprazole 20 mg oral delayed release capsule) 1 cap by mouth Once a day Duration: 90 Days Unchanged potassium chloride (Potassium Chloride (Eqv-K-Tab) 20 mEq oral tablet, extended release) 1 tab(s) by mouth Two (2) times a day Duration: 30 Days Take with food. Dose has been increased to 20 Eq BID Unchanged tamsulosin (tamsulosin 0.4 mg oral capsule) 1 cap by mouth Once a day Please take this list to your next doctor s visit. Bring all medications you take, including over the counter medications, herbals and other supplements with you to your doctor s visit. Patients and families are reminded to discard old lists and to update any records with all medication providers or retail pharmacies. Education Materials Kidney Stone, Undescended, No Symptoms A kidney stone (nephrolithiasis) begins as tiny crystals that form inside the kidney where urine is made. Most kidney stones enlarge to about 1/8 to 1/4 inch in size before leaving the kidney and moving toward the bladder. There are 4 types of kidney stones. Eighty percent are calcium stones mostly calcium oxalate but also some with calcium phosphate. The other 3 types include uric acid stones, struvite stones (from a preceding infection), and rarely, cystine stones. When the stone breaks free and begins to move down the ureter (the narrow tube joining the kidney to the bladder) it often causes sharp back and side pain, often with nausea and vomiting. When the stone reaches the bladder, the pain stops. Once in your bladder, the kidney stone may pass through the urethra (urinary opening) while you are urinating (which may cause pain to start again). Or, it may break into such small fragments that you don t notice it passing. Your kidney stone is still inside the kidney. There is no way to predict how long it will be before it breaks free and causes any symptoms. Most stones will pass on their own within a few hours to a few days (sometimes longer). You may notice a red, pink, or brown color to your urine. This is normal while passing a kidney stone. A large stone may not pass on its own and may require special procedures to remove it. These procedures include lithotripsy, which uses ultrasound waves to break up the stone; ureteroscopy, which pushes a thin, basket-like instrument through the urethra and bladder and into the ureter to pull out the stone; and various types of direct surgery through the skin. Home care The following guidelines will help you care for yourself at home: Drink plenty of fluids. This increases urine flow and reduces the risk of further stone formation. Healthy adults (no heart/liver/kidney disease) who have had a kidney stone should drink 12, 8-ounce glasses of fluids per day. Most of this should be water. The goal is to produce 1.5 to 2 quarts of almost colorless urine per 24 hours. You should collect your urine in a container and then drain it through a strainer to collect any stones or pieces of stones. Take these to your healthcare provider to help identify your specific type of stone to aid in future treatment and dietary changes. Try to stay as active as possible since this will help the stone pass. Don't stay in bed unless you have pain that prevents you from getting up. If you develop pain, you may take ibuprofen or naproxen for pain, unless another medicine was prescribed. If you have chronic liver or kidney disease or ever had a stomach ulcer or GI bleeding, talk with your healthcare provider before using these medicines. Prevention Each year, there is a 5% to 10% chance that a new stone will form (50% chance over the next 5 to 7 years). The risk is higher if you have a family history of kidney stones or have certain chronic illnesses such as hypertension, obesity, or diabetes. However, there are lifestyle and dietary changes that you can make to reduce the risk of a recurrence. Most kidney stones are made of calcium. The following is advice for preventing a recurrence of calcium stones. If you don t know the type of stone you have, follow this advice until the cause of your stone is determined. Things that help: The most important thing you can do is to drink plenty of fluids each day, as described above. Certain foods, such as wheat, rice, rye, barley and beans, contain phytate, a compound that may lower the risk of recurrence of any type of stone. Eat more fruits and vegetables (especially those high in potassium). Eat foods high in natural citrate like fruit and fruit juices (using low sugar). Low calcium contributes to the formation of calcium type kidney stones. Eat a normal calcium diet and speak with your doctor if you are taking calcium supplements. It may be detrimental to reduce your calcium intake. New research shows that eating calcium-rich and oxalate-rich foods together lowers your risk of stones by binding the minerals in the stomach and intestines before they can reach the kidneys. Limit salt intake to 2 grams (1 teaspoon) per day. Use limited amounts when cooking, and don t add salt at the table. Processed and canned foods are usually high in salt. Spinach, rhubarb, peanuts, cashews and almonds, grapefruit and grapefruit juice are all high oxalate foods and should be reduced, or eaten with calcium rich foods. These foods include dairy, dark leafy greens, soy products, and calcium enriched foods. Reducing the amount of animal meat in your diet may lower your risk of uric acid stones. Don't have excess sugar (sucrose) and fructose (sweetener in many soft drinks) in your diet. If you take vitamin C as a supplement, do not take more than 1,000 milligrams (mg) per day. A dietitian or your healthcare provider can provide you with specific details about dietary changes to prevent kidney stone recurrence. Follow-up care Follow up with your healthcare provider, or as advised. Talk with your healthcare provider about urine and blood tests to find out the cause of your stone. If you had an X-ray, CT scan, or other diagnostic test, you will be notified of any findings that may affect your care. Call 911 Call 911 if you have any of these: Weakness, dizziness, or fainting When to seek medical advice Call your healthcare provider right away if any of the these occur: Severe sharp back or side pain Repeated vomiting or unable to keep down fluids Fever of 100.4 F (38 C) or higher, or as directed by your health care provider Blood (pink or red color) in your urine Foul smelling or cloudy urine Unable to pass urine for 8 hours or increasing bladder pressure 2484-2860 [employer]. [address] [place] [address]. All rights reserved. This information is not intended as a substitute for professional medical care. Always follow your healthcare professional's instructions. Hypokalemia Hypokalemia means a low level of potassium in the blood. This most often occurs in people who take water pills (diuretics). It can also occur because of severe vomiting or diarrhea. You may also have it if you take laxatives for long periods of time. It sometimes happens if you have low magnesium (hypomagnesemia). If you have this, your healthcare provider will treat the low magnesium first. A mild case of hypokalemia usually causes no symptoms. It is only found with blood testing. More severe potassium loss causes overall weakness, muscle or abdominal cramps, rapid or irregular heartbeats (heart palpitations), low blood pressure, and muscle weakness. Home care Take any potassium supplements as prescribed. Eat foods rich in potassium. The highest amount is found in avocado, baked potatoes, spinach, cantaloupe, cod, halibut, salmon, and scallops. White, red, or gutierrez beans are also very good sources. A modest amount of potassium is found in orange juice, bananas, carrots, and tomato juice. If you take certain types of diuretics, you will also need to take potassium supplements. If you take a diuretic, discuss potassium supplements with your doctor. Follow-up care Follow up with your healthcare provider for a repeat blood test within the next week, or as advised by our staff. When to seek medical advice Call your healthcare provider right away if any of the following occur: Increased weakness, fatigue, or muscle cramps Dizziness Call 911 Call 911 if any of the following occur: Irregular heartbeat, extra beats, or very fast heart rate Loss of consciousness [id number] [employer] [facility]. [address] [place], [place] [id number]. All rights reserved. This information is not intended as a substitute for professional medical care. Always follow your healthcare professional's instructions. Established High Blood Pressure High blood pressure (hypertension) is a chronic disease. Often, healthcare providers don t know what causes it. But it can be caused by certain health conditions and medicines. If you have high blood pressure, you may not have any symptoms. If you do have symptoms, they may include headache, dizziness, changes in your vision, chest pain, and shortness of breath. But even without symptoms, high blood pressure that s not treated raises your risk for heart attack, heart failure, and stroke. High blood pressure is a serious health risk and shouldn t be ignored. Blood pressure measurements are given as 2 numbers. Systolic blood pressure is the upper number. This is the pressure when the heart contracts. Diastolic blood pressure is the lower number. This is the pressure when the heart relaxes between beats. You will see your blood pressure readings written together. For example, a person with a systolic pressure of 118 and a diastolic pressure of 78 will have 118/78 written in the medical record. Blood pressure is categorized as normal, elevated, or stage 1 or stage 2 high blood pressure: Normal blood pressure is systolic of less than 120 and diastolic of less than 80 (120/80) Elevated blood pressure is systolic of 120 to 129 and diastolic less than 80 Stage 1 high blood pressure is systolic is 130 to 139 or diastolic between 80 to 89 Stage 2 high blood pressure is when systolic is 140 or higher or the diastolic is 90 or higher Home care If you have high blood pressure, follow these home care guidelines to help lower your blood pressure. If you are taking medicines for high blood pressure, these methods may reduce or end your need for medicines in the future. Start a weight-loss program if you are overweight. Cut back on how much salt you get in your diet. Here s how to do this: oDon t eat foods that have a lot of salt. These include olives, pickles, smoked meats, and salted potato chips. oDon t add salt to your food at the table. oUse only small amounts of salt when cooking. Start an exercise program. Talk with your healthcare provider about the type of exercise program that would be best for you. It doesn't have to be hard. Even brisk walking for 20 minutes 3 times a week is a good form of exercise. Don t take medicines that stimulate the heart. This includes many bexw-vmr-pittzhe cold and sinus decongestant pills and sprays, as well as diet pills. Check the warnings about high blood pressure on the label. Before buying any rxbn-etn-dmlpwcj medicines or supplements, always ask the pharmacist about the product's potential interaction with your high blood pressure and your high blood pressure medicines. Stimulants such as amphetamine or cocaine could be deadly for someone with high blood pressure. Never take these. Limit how much caffeine you get in your diet. Switch to caffeine-free products. Stop smoking. If you are a long-time smoker, this can be hard. Talk to your healthcare provider about medicines and nicotine replacement options to help you. Also, enroll in a stop-smoking program to make it more likely that you will quit for good. Learn how to handle stress. This is an important part of any program to lower blood pressure. Learn about relaxation methods like meditation, yoga, or biofeedback. If your provider prescribed medicines, take them exactly as directed. Missing doses may cause your blood pressure get out of control. If you miss a dose or doses, check with your healthcare provider or pharmacist about what to do. Consider buying an automatic blood pressure machine to check your blood pressure at home. Ask your provider for a recommendation. You can get one of these at most pharmacies. The [employer] [employer] recommends the following guidelines for home blood pressure monitoring: Don't smoke or drink coffee for 30 minutes before taking your blood pressure. Go to the bathroom before the test. Relax for 5 minutes before taking the measurement. Sit with your back supported (don't sit on a couch or soft chair); keep your feet on the floor uncrossed. Place your arm on a solid flat surface (like a table) with the upper part of the arm at heart level. Place the middle of the cuff directly above the bend of the elbow. Check the monitor's instruction manual for an illustration. Take multiple readings. When you measure, take 2 to 3 readings one minute apart and record all of the results. Take your blood pressure at the same time every day, or as your healthcare provider recommends. Record the date, time, and blood pressure reading. Take the record with you to your next medical appointment. If your blood pressure monitor has a built-in memory, simply take the monitor with you to your next appointment. Call your provider if you have several high readings. Don't be frightened by a single high blood pressure reading, but if you get several high readings, check in with your healthcare provider. Note: When blood pressure reaches a systolic (top number) of 180 or higher OR diastolic (bottom number) of 110 or higher, seek emergency medical treatment. Follow-up care You will need to see your healthcare provider regularly. This is to check your blood pressure and to make changes to your medicines. Make a follow-up appointment as directed. Bring the record of your home blood pressure readings to the appointment. When to seek medical advice Call your healthcare provider right away if any of these occur: Blood pressure reaches a systolic (upper number) of 180 or higher OR a diastolic (bottom number) of 110 or higher Chest pain or shortness of breath Severe headache Throbbing or rushing sound in the ears Nosebleed Sudden severe pain in your belly (abdomen) Extreme drowsiness, confusion, or fainting Dizziness or spinning sensation (vertigo) Weakness of an arm or leg or one side of the face You have problems speaking or seeing [id number] [employer]. [address] [place] [address]. All rights reserved. This information is not intended as a substitute for professional medical care. Always follow your healthcare professional's instructions. Flank Pain, Uncertain Cause The flank is the area between your upper abdomen and your back. Pain there is often caused by a problem with your kidneys. It might be a kidney infection or a kidney stone. Other causes of flank pain include spinal arthritis, a pinched nerve from a back injury, or a back muscle strain or spasm. The cause of your flank pain is not certain. You may need other tests. Home care Follow these tips when caring for yourself at home: You may use acetaminophen or ibuprofen to control pain, unless your health care provider prescribed another medicine. If you have chronic liver or kidney disease, talk with your provider before taking these medicines. Also talk with your provider first if you ve ever had a stomach ulcer or GI bleeding. If the pain is coming from your muscles, you may get relief with ice or heat. During the first 2 days after the injury, put an ice pack on the painful area for 20 minutes every 2 to 4 hours. This will reduce swelling and pain. A hot shower, hot bath, or heating pad works well for a muscle spasm. You can start with ice, then switch to heat after 2 days. You might find that alternating ice and heat works well. Use the method that feels the best to you. Follow-up care Follow up with your healthcare provider if your symptoms don t get better over the next few days. When to seek medical advice Call your healthcare provider right away if any of these happen: Repeated vomiting Fever of 100.4 F (38 C) or higher, or as directed by your health care provider Flank pain that gets worse Pain that spreads to the front of your belly (abdomen) Dizziness, weakness, or fainting Blood in your urine Burning feeling when you urinate or the need to urinate often Pain in one of your legs that gets worse Numbness or weakness in a leg [id number] [employer]. [address] [place], [place] [address]. All rights reserved. This information is not intended as a substitute for professional medical care. Always follow your healthcare professional's instructions. Nonalcoholic Fatty Liver Disease (NAFLD) Nonalcoholic fatty liver disease (NAFLD) is a common disease of the liver. It occurs when you have too much fat in the liver. If NAFLD is severe, it can cause liver damage that seems like the damage caused by drinking too much alcohol. But NAFLD is not caused by drinking alcohol. This sheet tells you more about NAFLD and how it can be managed. How the liver works The liver is an organ in the upper right side of the belly (abdomen). It has many important jobs. These include: Breaking down (metabolizing) proteins, carbohydrates, and fats Making a substance called bile that helps break down fats Storing and releasing sugar (glucose) into the blood to give the body energy Removing toxins from the blood Helping with blood clotting Understanding NAFLD A healthy liver may contain some fat. But if too much fat builds up in the liver, this causes NAFLD. NAFLD can be mild, causing fatty liver. Or it can be more severe and show inflammation, as well as the fat. This can cause non-alcoholic steatohepatitis (LEBLANC). Fatty liver. With fatty liver, the liver simply has more fat than normal. This extra fat usually does not harm the liver. LEBLANC. With LEBLANC, the fatty liver becomes inflamed over time. LEBLANC is serious because it can lead to scarring of the liver (fibrosis). Over time, the scarring may lead to cirrhosis of the liver. This can eventually cause liver failure or liver cancer. Causes and risk factors of NAFLD Doctors don't know what causes NAFLD. But certain things make the problem more likely to happen. These include: Obesity Prediabetes or diabetes High levels of fat found in the blood (cholesterol and triglycerides) Being exposed to certain medicines Symptoms of NAFLD Most people with NAFLD have no symptoms. If symptoms do occur, they can include: Tiredness Weakness Weight loss Loss of appetite Nausea and vomiting Belly pain and cramping Yellowing of the skin and eyes (jaundice), as well as dark urine, or light-colored stools Swelling in the belly or legs Diagnosing NAFLD Your healthcare provider may think you have NAFLD if routine blood tests show high levels of liver enzymes. This may mean you have a liver problem. You may need one or more imaging tests, such as an ultrasound, CT, or MRI. You may need more blood tests to look for other causes of liver disease. You may also need a liver biopsy. During this test, a hollow needle is used to remove a tiny tissue sample from your liver. This tissue is then checked in a lab. This test can find signs of damage to liver tissue. It can also help figure out the cause of the damage and tell the difference between fatty liver and LEBLANC. Treating NAFLD Treatment for NAFLD varies for each person. The best early treatment is to treat any underlying conditions causing metabolic syndrome. This is the name for a group of conditions that includes: High blood pressure High levels of cholesterol and triglycerides Being overweight or obese Diabetes Your healthcare provider will monitor your health and treat any symptoms or underlying health problems you have. Your provider will also work with you to control your risk factors. This will make liver damage less likely. In fact, treating those underlying conditions can often improve liver disease. You may need to take certain medicines, but no medicine will cure NAFLD. This is why treating the underlying conditions is most important. Your plan may include: Losing extra weight Getting regular exercise Controlling diabetes and high cholesterol or triglyceride levels Taking medicines and vitamins as prescribed by your provider Quitting smoking Not drinking alcohol Eating a healthy and balanced diet Living with NAFLD If NAFLD is caught early, it can be managed with treatment. Your healthcare provider will discuss further treatment choices with you as needed. Be sure to ask your provider about recommended vaccines. These include vaccines for viruses that can cause liver disease. [id number] [employer]. [address] [place] [address]. All rights reserved. This information is not intended as a substitute for professional medical care. Always follow your healthcare professional's instructions. Additional Information VACCINATE! IT SAVES LIVES! Members of the community who have not yet received the COVID-19 vaccine and would like to receive it can visit one of [facility] vaccine clinics. There are many vaccine clinic locations within the [facility]. For locations and available times, please visit [email or web address] It is important to note that some COVID mobile vaccine clinics are held outdoors and may be canceled in rainy or stormy conditions. To learn more about pediatric vaccinations (ages 5-11), we invite you to visit the [facility] webpage. [email or web address] [email or web address] To learn more about the COVID-19 vaccine, we invite you to visit the CDC website for a list of frequently asked questions. https://www.cdc.gov/coronavirus/20 19-ncov/vaccines/faq.html [facility] Patient Portal Access Instructions: Stay connected with your healthcare team and access your personal medical information anytime with the [facility] Patient Portal. If you would like a full copy of your medical records please contact the [facility] Medical Records Department Friday through Friday between 8a.m. and 4:30p.m. Please follow the directions below to access the portal: 1.Access the email account you provided upon registration to the hospital.2.Look for an invitation email from [facility].3.Open the email and access the invitation link: Accept Invitation to [facility].Fill in the required hernandes to create your account. Sign into [email or web address] with your username and password that you created in the above steps to stay up to date. You can then view a summary of results, a summary of your visits, and the ability to download your summaries to your computer or send the information securely to a physician. Remember that your healthcare information is confidential, so carefully consider who you will allow to register on the [employer] [facility] Patient Portal for access to your information. You can also access the [employer] [facility] Patient Portal on the [employer] ru. Simply click on Health Records under Health Data and then click on the [employer] logo. HOW TO SAFELY DISPOSE OF PRESCRIPTION MEDICATIONS Please use one of the following methods to safely dispose of your unused medications. 1.Use a drug disposal kit: the drug disposal pouch allows you to safely discard your old and unused drugs. Ask your nurse to give you one when you are discharged.2.Visit a local take-back location: Many local pharmacies and police departments have programs that collect old and unwanted prescription drugs. Call your local pharmacy or go to http://Recovers/5C3Hj2f to find one close to you.3.Make use of household items: Use cat litter or old coffee grounds to dispose medications if other options are not available. Mix your drugs with these household products, seal them in an airtight container and throw it into the garbage. Call [facility]: [phone] to be sure your drugs can be disposed of in this way. Some medicines may require a different approach.4.Never flush your medications down the toilet. IF YOU HAVE BEEN PRESCRIBED AN OPIOIDS FOR PAIN If you have been prescribed an opioid (such as hydrocodone, oxycodone or morphine), it is critical to understand the possible side effects and risks of opioid pain medications. Even when taken as directed, opioids can have several side effects including: Tolerance, meaning you might need to take more of a medication for the same pain relief. Nausea, vomiting and/or constipation. Sleepiness, dizziness, dry mouth, confusion, depression or itching. Physical dependence, meaning you have withdrawal symptoms when a medication is stopped ? this can develop within a few days. KNOW YOUR RESPONSIBILITIES It is important to know exactly how much and how often to take the opioid pain medications you are prescribed. Never take opioids in higher amounts or more often than prescribed. Do not combine opioids with alcohol or other drugs that cause drowsiness, such as benzodiazepines, also known as benzos, including diazepam and alprazolam, muscle relaxants or sleep aids. Never sell or share prescription opioids. This is illegal. Store opioids in a secure place and out of reach of others (including children, family, friends and visitors). The last page(s) of this document has been signed and retained as a CHART COPY Signatures Patient Education Materials Kidney Stone, Undescended (No Symptoms) Hypokalemia Hypertension, Established Flank Pain, Uncertain Cause Nonalcoholic Fatty Liver Disease (NAFLD) Medication Leaflets My discharge plan and instructions have been reviewed and explained to me and I,GARCIA LINWOOD E understand my current condition and have read and understand these discharge instructions. I have received a written copy of the plan/instructions. If I have questions, I am aware that I should contact my doctor. 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 This exam was performed according to our departmental dose optimization program, and includes the following measures where applicable: automated exposure control, adjustment of the mAs and/or kVp according to patient size and/or exam, and an iterative reconstruction algorithm. FINDINGS: There is fatty infiltration of the liver. There is a punctate calcification in the left kidney. There are no ureteral or right renal stones. There is a hypodensity in the left lobe of the liver, too small to characterize further, there is fatty infiltration of the liver. The remaining abdominal organs are unremarkable in appearance. Bowel is poorly evaluated in the absence of oral contrast. A normal appendix is identified. There is no free fluid. IMPRESSION: Punctate left renal calcification. No signs of recent stone passage. Interpreted by: Shilo Rowan MD Preliminary Report By: Shilo Rowan MD Electronically signed By Shilo Rowan MD Dictated Date: 08/03/2023 2:48:46 PM Prelim Date: 08/03/2023 2:52:17 PM Sign Date: 08/03/2023 2:52:17 PM Ordering Provider: BRAYAN GILL [facility] 07-20-2023 Note . MICRO - Microbiology PROCEDURE: Stool Culture [^1 *1] SOURCE: Stool BODY SITE: COLLECTED DATE/TIME: 07/15/2023 15:24 EST RECEIVED DATE/TIME: 07/16/2023 14:44 EST START DATE/TIME: 07/16/2023 14:44 EST FREE TEXT SOURCE: FINAL REPORTS Final Report [] Verified Date/Time/Personnel: 07/20/2023 07:22 EST Normal stool omer present. Salmonella: Negative Shigella: Negative Campylobacter: Negative PRELIMINARY REPORTS Preliminary Report [] Verified Date/Time/Personnel: 07/18/2023 10:25 EST Normal stool omer present. Negative for stool pathogens at 48 hours. Final report to follow. Interpretive Data ^1: Culture Stool Requests for alternative pathogens including Yersinia, E. coli 0157, C. difficile toxin, Rotavirus, Giardia and parasites require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 for professional medical care. Always follow yourhealthcare professional's instructions. Myalgias Myalgias are another word for muscle aches and soreness. This is a symptom, not a disease. Myalgiascan have many causes. A cold, the flu, or an acute infection can cause them. So can any illness with a high fever. They may happen after exertion (such as heavy exercise) or injury (such as an accident or fall). Some medicines (such as statins and certain antidepressants) can cause myalgias. They can also be a symptom of chronic or ongoing medical problems (such as lupus, chronic fatigue, or hypothyroidism). With these illnesses, other serious symptoms often occur in addition to muscle pain andsoreness. Myalgias most often go away on their own. If they don't go away, come back, or are severe, testing may be needed to help find the cause. Home care Rest until you feel better. Follow instructions that you were given for how to care for yourself. This may depend on the cause of your myalgias. If myalgia is thought to be due to a medicine, be sure to talk to the doctor that prescribed the medicine about the best course of action. To control pain, take prescription or cnou-wwu-khamnvb medicines as directed. Unless told not to, you can try acetaminophen or ibuprofen. Follow-up care Follow up with your healthcare provider or as advised. If your symptoms do not go away in a few days or if they come back, follow up with your healthcare provider for an exam and testing. When to see medical advice Call your healthcare provider for any of the following: Fever of 100.4 F (38 C) or higher, or as directed by your healthcare provider Pain that gets worse and not better, or that goes away and comes back New joint pains New rash Severe headache, neck pain, drowsiness, or confusion 7618-7985 [employer]. [address] [place] [address]. All rights reserved. This information is not intended as a substitute for professional medical care. Always follow yourhealthcare professional's instructions. Additional Information VACCINATE! IT SAVES LIVES! Members of the community who have not yet received the COVID-19 vaccine and would like to receive it can visit one of [facility] vaccine clinics. There are many vaccine clinic locations within the [facility]. For locations and available times, please visit [email or web address]. It is important to note that some COVID mobile vaccine clinics are held outdoors and may be canceled in rainy orstormy conditions. To learn more about pediatric vaccinations (ages 5-11), we invite you to visit the [facility] webpage. [email or web address]/[email or web address]-[email or web address] [email or web address].htmlTo learn more about the COVID-19 vaccine, we invite you to visit the [employer] website for a list of frequently asked questions. [email or web address] _[email or web address] [facility] [employer] Patient Portal Access Instructions: Stay connected with your healthcare team and access your personal medical information anytime with the [facility] Patient Portal. If you would like a full copy of your medical records please contact the [facility] Medical Records Department Friday through Friday between 8a.m. and 4:30p.m. Please follow the directions below to access the portal: 1.Access the email account you provided upon registration to the [facility].2.Look for an invitation email from [facility].3.Open the email and access the invitation link: Accept Invitation to [facility]4.Fill in the required hernandes to create your account. Sign into [email or web address] with your username and password that you created in the above steps to stay up to date. You can then view a summary of results, a summary of your visits, and the ability to download your summaries to your computer or send the information securely to a physician. Remember that your healthcare information is confidential, so carefully consider who you will allow to register on the [facility] [employer] Patient Portal for access to your information. You can also access the [facility] Patient Portal on the [employer] ru. Simply click on Health Records under [place] and then click on the [facility] logo. HOW TO SAFELY DISPOSE OF PRESCRIPTION MEDICATIONS Please use one of the following methods to safely dispose of your unused medications. 1.Use a drug disposal kit: the drug disposal pouch allows you to safely discard your old and unuseddrugs. Ask your nurse to give you one when you are discharged.2.Visit a local take-back location: Many local pharmacies and police departments have programs that collect old and unwanted prescriptiondrugs. Call your local pharmacy or go to http://bit.CHOBOLABS/2J3Oe1r to find one close to you.3.Make use of household items: Use cat litter or old coffee grounds to dispose medications if other options arenot available. Mix your drugs with these household products, seal them in an airtight container andthrow it into the garbage. Call [facility]: [phone] to be sure your drugs can be disposed of in this way. Some medicines may require a different approach.4.Never flush your medications down the toilet. IF YOU HAVE BEEN PRESCRIBED AN OPIOIDS FOR PAIN If you have been prescribed an opioid (such as hydrocodone, oxycodone or morphine), it is critical to understand the possible side effects and risks of opioid pain medications. Even when taken as directed, opioids can have several side effects including: Tolerance, meaning you might need to take more of a medication for the same pain relief. Nausea, vomiting and/or constipation. Sleepiness, dizziness, dry mouth, confusion, depression or itching. Physical dependence, meaning you have withdrawal symptoms when a medication is stopped ? this can develop within a few days. KNOW YOUR RESPONSIBILITIES It is important to know exactly how much and how often to take the opioid pain medications you are prescribed. Never take opioids in higher amounts or more often than prescribed. Do not combine opioids with alcohol or other drugs that cause drowsiness, such as benzodiazepines, also known as benzos,including diazepam and alprazolam, muscle relaxants or sleep aids. Never sell or share prescriptionopioids. This is illegal. Store opioids in a secure place and out of reach of others (including children, family, friends and visitors). The last page(s) of this document has been signed and retained as a CHART COPY Signatures Patient Education Materials Radiculopathy, Cervical Myalgias Medication Leaflets My discharge plan and instructions have been reviewed and explained to me and I,LINWOOD ZELAYA understand my current condition and have read and understand these discharge instructions. I have receiveda written copy of the plan/instructions. If I have questions, I am aware that I should contact my do ctor. Patient/Caster Operator Signature: Date/Time: Relationship to Patient: Witness Name/Signature: Date/Time: [id number] Summary note Discharge Instructions Thank you for allowing [facility] to assist you with your healthcare needs. The following is importantdischarge information regarding your hospital visit. Diagnosis from Today's Visit Myalgia Neck pain Shoulder pain What to Do Next Instructions from Your Care Team No qualifying data available. Post Acute Orders No qualifying data available. You Need to Schedule the Following Appointments Follow Up with Go to emergency room if symptoms worsen When Within 2-4 days Follow Up with KOMAL MART MD When Within 2-4 days Where: [address] [facility] [address] [place] [address]- Allergies NKA Medications Please ask your primary doctor or pharmacist before taking any other medication not listed, including over the counter drugs, herbal medications, vitamins and or supplements as they may interact withyour home medications. What How Much When Why Instructions Last Dose New acetaminophen-oxyCODONE (Percocet 5 mg-325 mg oral tablet) 1 tab(s) by mouth Every 4 hours as needed for as needed for pain Myalgia Duration: 2 Days Printed Prescription New methylPREDNISolone (Medrol Dosepak 4 mg oral tablet) Per Dosepak Instructions by mouth Every day Printed Prescription Unchanged ascorbic acid/ chondroitin/ glucosa/ clarence (Glucosamine Chondroitin oral capsule) 1 cap by mouth Once a day Unchanged cyclobenzaprine (cyclobenzaprine 10 mg oral tablet) 1 tab(s) by mouth Every day as needed for Pain Unchanged finasteride (finasteride 5 mg oral tablet) 1 tab(s) by mouth Once a day Elevated PSA, less than 10 ng/ml. Neg bx in 08/2019, 01/2021 (cognitive fusion), 06/2021 (UroNav fusion). 48cc by MRI. PSAD - 0.5. MRI, 01/2021 - PIRADS 4, right mid TZ. PSA - 24 / 7% (12/2020). Adopted. Duration: 90 Days Unchanged loratadine-pseudoephedrine (Claritin-D 24 Hour oral tablet, extended release) 1 tab(s) by mouth Every day Unchanged multivitamin (Vitamin B Complex oral capsule) 1 cap by mouth Once a day Unchanged omeprazole (omeprazole 20 mg oral delayed release capsule) 1 cap by mouth Once a day TAKE ONE CAPSULE BY MOUTH EVERY DAY Unchanged tamsulosin (Flomax 0.4 mg oral capsule) 1 cap by mouth Once a day will get refills at Please take this list to your next doctor s visit. Bring all medications you take, including over the counter medications, herbals and other supplements with you to your doctor s visit. Patients and families are reminded to discard old lists and to update any records with all medication providers or retail pharmacies. Education Materials Myalgias Myalgias are another word for muscle aches and soreness. This is a symptom, not a disease. Myalgiascan have many causes. A cold, the flu, or an acute infection can cause them. So can any illness with a high fever. They may happen after exertion (such as heavy exercise) or injury (such as an accident or fall). Some medicines (such as statins and certain antidepressants) can cause myalgias. They can also be a symptom of chronic or ongoing medical problems (such as lupus, chronic fatigue, or hypothyroidism). With these illnesses, other serious symptoms often occur in addition to muscle pain andsoreness. Myalgias most often go away on their own. If they don't go away, come back, or are severe, testing may be needed to help find the cause. Home care Rest until you feel better. Follow instructions that you were given for how to care for yourself. This may depend on the cause of your myalgias. If myalgia is thought to be due to a medicine, be sure to talk to the doctor that prescribed the medicine about the best course of action. To control pain, take prescription or alwh-vyr-jltyqgn medicines as directed. Unless told not to, you can try acetaminophen or ibuprofen. Follow-up care Follow up with your healthcare provider or as advised. If your symptoms do not go away in a few days or if they come back, follow up with your healthcare provider for an exam and testing. When to see medical advice Call your healthcare provider for any of the following: Fever of 100.4 F (38 C) or higher, or as directed by your healthcare provider Pain that gets worse and not better, or that goes away and comes back New joint pains New rash Severe headache, neck pain, drowsiness, or confusion [id number] [employer]. [address] [place] [address], [place] [address]. All rights reserved. This information is not intended as a substitute for professional medical care. Always follow yourhealthcare professional's instructions. Additional Information VACCINATE! IT SAVES LIVES! Members of the community who have not yet received the COVID-19 vaccine and would like to receive it can visit one of [facility] vaccine clinics. There are many vaccine clinic locations within the [facility]. For locations and available times, please visit [email or web address]. It is important to note that some COVID mobile vaccine clinics are held outdoors and may be canceled in rainy orstormy conditions. To learn more about pediatric vaccinations (ages 5-11), we invite you to visit the [facility] webpage. [email or web address]/[email or web address] [email or web address].htmlTo learn more about the COVID-19 vaccine, we invite you to visit the [facility] website for a list of frequently asked questions. [email or web address] [facility] Patient Portal Access Instructions: Stay connected with your healthcare team and access your personal medical information anytime with the [facility] Patient Portal. If you would like a full copy of your medical records please contact the [facility] Medical Records Department Friday through Friday between 8a.m. and 4:30p.m. Please follow the directions below to access the portal: 1.Access the email account you provided upon registration to the hospital.2.Look for an invitation email from [facility].3.Open the email and access the invitation link: Accept Invitation to [facility]4.Fill in the required hernandes to create your account. Sign into [email or web address] with your username and password that you created in the above steps to stay up to date. You can then view a summary of results, a summary of your visits, and the ability to download your summaries to your computer or send the information securely to a physician. Remember that your healthcare information is confidential, so carefully consider who you will allow to register on the [facility] Patient Portal for access to your information. You can also access the [facility] Patient Portal on the [employer] ru. Simply click on Health Records under [place] and then click on the [employer] logo. HOW TO SAFELY DISPOSE OF PRESCRIPTION MEDICATIONS Please use one of the following methods to safely dispose of your unused medications. 1.Use a drug disposal kit: the drug disposal pouch allows you to safely discard your old and unuseddrugs. Ask your nurse to give you one when you are discharged.2.Visit a local take-back location: Many local pharmacies and police departments have programs that collect old and unwanted prescriptiondrugs. Call your local pharmacy or go to http://Housebites.CHOBOLABS/6B2Zl0x to find one close to you.3.Make use of household items: Use cat litter or old coffee grounds to dispose medications if other options arenot available. Mix your drugs with these household products, seal them in an airtight container andthrow it into the garbage. Call [facility]: [phone] to be sure your drugs can be disposed of in this way. Some medicines may require a different approach.4.Never flush your medications down the toilet. IF YOU HAVE BEEN PRESCRIBED AN OPIOIDS FOR PAIN If you have been prescribed an opioid (such as hydrocodone, oxycodone or morphine), it is critical to understand the possible side effects and risks of opioid pain medications. Even when taken as directed, opioids can have several side effects including: Tolerance, meaning you might need to take more of a medication for the same pain relief. Nausea, vomiting and/or constipation. Sleepiness, dizziness, dry mouth, confusion, depression or itching. Physical dependence, meaning you have withdrawal symptoms when a medication is stopped ? this can develop within a few days. KNOW YOUR RESPONSIBILITIES It is important to know exactly how much and how often to take the opioid pain medications you are prescribed. Never take opioids in higher amounts or more often than prescribed. Do not combine opioids with alcohol or other drugs that cause drowsiness, such as benzodiazepines, also known as benzos,including diazepam and alprazolam, muscle relaxants or sleep aids. Never sell or share prescriptionopioids. This is illegal. Store opioids in a secure place and out of reach of others (including children, family, friends and visitors). The last page(s) of this document has been signed and retained as a CHART COPY Signatures Patient Education Materials Myalgias Medication Leaflets My discharge plan and instructions have been reviewed and explained to me and GARCIA Zarate SETH E understand my current condition and have read and understand these discharge instructions. I have receiveda written copy of the plan/instructions. If I have questions, I am aware that I should contact my do ctor. Patient/Caster Operator Signature: Date/Time: Relationship to Patient: Witness Name/Signature: Date/Time: [id number] Note ORIGINAL EXAMINATION: CT OF THE CERVICAL SPINE WITHOUT CONTRAST 01/14/2022 10:41 pm TECHNIQUE: CT of the cervical spine was performed without the administration of intravenous contrast. Multiplanar reformatted images are provided for review. Automated exposure control, iterative reconstruction, and/or weight based adjustment of the mA/kV was utilized to reduce the radiation dose to as low as reasonably achievable. COMPARISON: None. HISTORY: ORDERING SYSTEM PROVIDED HISTORY: Reason for Exam: severe left side neck pain radiating into left arm pain FINDINGS: BONES/ALIGNMENT: There is no acute fracture or traumatic malalignment. DEGENERATIVE CHANGES: Moderate degenerative disc and facet disease affects C5-6 and C6-7 with mild bilateral neural foraminal encroachment. No central spinal stenosis observed. SOFT TISSUES: There is no prevertebral soft tissue swelling. IMPRESSION: No acute abnormality of the cervical spine. Degenerative disc and facet disease C5-6 and C6-7. Interpreted by: Asa Mullins DO Preliminary Report By: Asa Mullins DO Electronically signed By Asa Mullins DO Dictated Date: 01/14/2022 10:44:46 PM Prelim Date: 01/14/2022 10:47:16 PM Sign Date: 01/14/2022 10:47:16 PM Ordering Provider: JIM CANNON [id number] Note ORIGINAL EXAMINATION: CT OF THE CERVICAL SPINE WITHOUT CONTRAST 01/14/2022 10:41 pm TECHNIQUE: CT of the cervical spine was performed without the administration of intravenous contrast. Multiplanar reformatted images are provided for review. Automated exposure control, iterative reconstruction, and/or weight based adjustment of the mA/kV was utilized to reduce the radiation dose to as low as reasonably achievable. COMPARISON: None. HISTORY: ORDERING SYSTEM PROVIDED HISTORY: Reason for Exam: severe left side neck pain radiating into left arm pain FINDINGS: BONES/ALIGNMENT: There is no acute fracture or traumatic malalignment. DEGENERATIVE CHANGES: Moderate degenerative disc and facet disease affects C5-6 and C6-7 with mild bilateral neural foraminal encroachment. No central spinal stenosis observed. SOFT TISSUES: There is no prevertebral soft tissue swelling. IMPRESSION: No acute abnormality of the cervical spine. Degenerative disc and facet disease C5-6 and C6-7. Interpreted by: Asa Mullins DO Preliminary Report By: Asa Mullins DO Electronically signed By Asa Mullins DO Dictated Date: 01/14/2022 10:44:46 PM Prelim Date: 01/14/2022 10:47:16 PM Sign Date: 01/14/2022 10:47:16 PM Ordering Provider: JIM [facility]11-10-2021 Evaluation + Plan note Future Scheduled Tests Laboratory* Basic Metabolic Panel 05/23/21 * Complete Blood Count 05/23/21 [facility] Evaluation + Plan note Future Appointments Appointment Date:05/23/2021 03:30:00 PM Scheduled Provider:BRAYAN COLE MD Location:[facility] Appointment Type:[facility] OV Diagnostic Tests Pending * PSA, Free 05/21/21 [facility] Evaluation + Plan note Future Appointments Appointment Date:06/29/2021 03:00:00 PM Scheduled Provider:BRAYAN COLE MD Location:[facility] Appointment Type:[facility] Talk [facility] Evaluation + Plan note Future Appointments Appointment Date:12/26/2021 03:20:00 PM Scheduled Provider:BRAYAN COLE MD Location:UROLOGY Appointment Type:URO OV Future Scheduled Tests Laboratory* Prostate Specific Antigen 12/26/21 [facility] Evaluation + Plan note Future Appointments Appointment Date:02/06/2022 02:30:00 PM Scheduled Provider:BRAYAN COLE MD Location:UROLOGY Appointment Type:URO [facility] Evaluation + Plan note Future Appointments Appointment Date:01/17/2022 01:45:00 PM Scheduled Provider: Location:[facility] Appointment Type:PT Treatment - Jessica Appointment Date:01/21/2022 01:45:00 PM Scheduled Provider: Location:[facility] Appointment Type:PT Treatment - Friendly Appointment Date:01/23/2022 01:45:00 PM Scheduled Provider: Location:[facility] Appointment Type:PT Treatment - [place] Appointment Date:02/20/2022 08:50:00 AM Scheduled Provider:BRAYAN COLE MD Location:UROLOGY Appointment Type:URO [facility] evaluation + Plan note Future Appointments Appointment Date:08/26/2022 01:00:00 PM Scheduled Provider:BRAYAN COLE MD Location:UROLOGY Appointment Type:URO OV Future Scheduled Tests Laboratory* Prostate Specific Antigen 08/23/22 [facility] Evaluation + Plan note Future Appointments Appointment Date:04/24/2022 08:15:00 AM Scheduled Provider: Location:[facility] Appointment Type:PT Outpatient Evaluation Appointment Date:08/26/2022 01:00:00 PM Scheduled Provider:BRAYAN COLE MD Location:UROLOGY Appointment Type:URO OV Future Scheduled Tests Laboratory* Prostate Specific Antigen 08/23/22 [facility] Evaluation + Plan note Future Appointments Appointment Date:05/29/2022 08:00:00 AM Scheduled Provider: Location:[facility] Appointment Type:PC Nurse BP Check Appointment Date:05/29/2022 08:45:00 AM Scheduled Provider: Location:[facility] Appointment Type:PT Treatment - Riesel Appointment Date:05/31/2022 09:15:00 AM Scheduled Provider: Location:[facility] Appointment Type:PT Treatment - Riesel Appointment Date:06/03/2022 03:45:00 PM Scheduled Provider: Location:[facility] Appointment Type:PT Treatment - Riesel Appointment Date:06/04/2022 11:30:00 AM Scheduled Provider:MAMIE ANGULO DO Location:[facility] Appointment Type:PC OV Discuss Test Results Appointment Date:06/05/2022 04:30:00 PM Scheduled Provider: Location:[facility] Appointment Type:PT Treatment - Riesel Appointment Date:06/10/2022 03:45:00 PM Scheduled Provider: Location:[facility] Appointment Type:PT Treatment - R[place]el Appointment Date:06/11/2022 03:45:00 PM Scheduled Provider:Padmini Fuller PTA 2553 Location:[facility] Appointment Type:PT Treatment - Riesel Appointment Date:06/13/2022 03:45:00 PM Scheduled Provider: Location:[facility] Appointment Type:PT Treatment - Riesel Appointment Date:08/23/2022 03:30:00 PM Scheduled Provider:MAMIE ANGULO DO Location:[facility] Appointment Type:PC OV Follow Up Appointment Date:08/26/2022 01:00:00 PM Scheduled Provider:BRAYAN COLE MD Location:UROLOGY Appointment Type:URO OV Future Scheduled Tests Laboratory* Prostate Specific Antigen 08/23/22 [facility] Evaluation + Plan note Future Appointments Appointment Date:06/05/2022 04:30:00 PM Scheduled Provider: Location:[facility] Appointment Type:PT Treatment - Riesel Appointment Date:06/10/2022 03:45:00 PM Scheduled Provider: Location:[facility] Appointment Type:PT Treatment - Riesel Appointment Date:06/11/2022 03:45:00 PM Scheduled Provider:Padmini Fuller PTA 2553 Location:[facility] Appointment Type:PT Treatment - Riesel Appointment Date:06/13/2022 03:00:00 PM Scheduled Provider:MAMIE ANGULO DO Location:[facility] Appointment Type:PC OV Discuss Test Results Appointment Date:06/13/2022 03:45:00 PM Scheduled Provider: Location:[facility] Appointment Type:PT Treatment - Riesel Appointment Date:06/17/2022 03:45:00 PM Scheduled Provider: Location:[facility] Appointment Type:PT Treatment - Riesel Appointment Date:06/18/2022 03:45:00 PM Scheduled Provider:Padmini Fuller PTA 2553 Location:[facility] Appointment Type:PT Treatment - Riesel Appointment Date:06/19/2022 03:45:00 PM Scheduled Provider: Location:[facility] Appointment Type:PT Treatment - Riesel Appointment Date:06/24/2022 03:45:00 PM Scheduled Provider: Location:[facility] Appointment Type:PT Treatment - Riesel Appointment Date:06/26/2022 03:45:00 PM Scheduled Provider: Location:[facility] Appointment Type:PT Treatment - Riesel Appointment Date:06/27/2022 03:30:00 PM Scheduled Provider: Location:[facility] Appointment Type:PT Treatment - Riesel Appointment Date:07/01/2022 03:45:00 PM Scheduled Provider:Padmini Fuller PTA 2553 Location:[facility] Appointment Type:PT Treatment - Riesel Appointment Date:07/02/2022 03:45:00 PM Scheduled Provider:Padmini Fuller PTA 2553 Location:[facility] Appointment Type:PT Treatment - Riesel Appointment Date:07/04/2022 03:30:00 PM Scheduled Provider: Location:[facility] Appointment Type:PT Treatment - Riesel Appointment Date:07/09/2022 03:30:00 PM Scheduled Provider: Location:[facility] Appointment Type:PT Treatment - Riesel Appointment Date:07/11/2022 03:30:00 PM Scheduled Provider: Location:[facility] Appointment Type:PT Treatment - Riesel Appointment Date:08/23/2022 03:30:00 PM Scheduled Provider:MAMIE ANGULO DO Location:[facility] Appointment Type:PC OV Follow Up Appointment Date:08/26/2022 01:00:00 PM Scheduled Provider:BRAYAN COLE MD Location:UROLOGY Appointment Type:URO OV Future Scheduled Tests Laboratory* Prostate Specific Antigen 08/23/22 [facility] Evaluation + Plan note Future Appointments Appointment Date:07/03/2022 03:45:00 PM Scheduled Provider: Location:[facility] Appointment Type:PT Treatment - Riesel Appointment Date:07/04/2022 03:30:00 PM Scheduled Provider: Location:[facility] Appointment Type:PT Treatment - Riesel Appointment Date:07/09/2022 03:30:00 PM Scheduled Provider: Location:[facility] Appointment Type:PT Treatment - Riesel Appointment Date:07/11/2022 03:30:00 PM Scheduled Provider: Location:[facility] Appointment Type:PT Treatment - Riesel Appointment Date:07/30/2022 03:30:00 PM Scheduled Provider:MAMIE ANGULO DO Location:[facility] Appointment Type:PC OV Follow Up Appointment Date:08/23/2022 03:30:00 PM Scheduled Provider:MAMIE ANGULO DO Location:[facility] [place] Appointment Type:PC OV Follow Up Appointment Date:08/26/2022 01:00:00 PM Scheduled Provider:BRAYAN COLE MD Location:UROLOGY Appointment Type:URO OV Future Scheduled Tests Laboratory* Prostate Specific Antigen 08/23/22 [facility] Evaluation + Plan note Future Appointments Appointment Date:08/26/2022 07:45:00 AM Scheduled Provider:Padmini Fuller PTA 2553 Location:[facility] Appointment Type:PT Treatment - Riesel Appointment Date:08/27/2022 02:20:00 PM Scheduled Provider:JULIO KATZ Location:UROLOGY Appointment Type:URO OV 20 min Appointment Date:08/28/2022 03:00:00 PM Scheduled Provider:Padmini Fuller PTA 2553 Location:[facility] Appointment Type:PT Treatment - R[place]el Appointment Date:08/29/2022 03:00:00 PM Scheduled Provider:Padmini Fuller PTA 2553 Location:[facility] Appointment Type:PT Treatment - R[place]el Appointment Date:01/28/2023 03:00:00 PM Scheduled Provider:MAMIE ANGULO DO Location:[facility] Appointment Type:PC Wellness Annual w/Labs Future Scheduled Tests Laboratory* Lipid Profile 01/27/23 [facility] Evaluation + Plan note Future Appointments Appointment Date:08/28/2022 03:00:00 PM Scheduled Provider:Padmini Fuller PTA 2553 Location:[facility] Appointment Type:PT Treatment - Riesel Appointment Date:08/29/2022 03:00:00 PM Scheduled Provider:Padmini Fuller PTA 2553 Location:[facility] Appointment Type:PT Treatment - [place]el Appointment Date:01/28/2023 03:00:00 PM Scheduled Provider:MAMIE ANGULO DO Location:[facility] Appointment Type:PC Wellness Annual w/Labs Appointment Date:03/03/2023 02:30:00 PM Scheduled Provider:ESPERANZA TRAVIS MD Location:UROLOGY Appointment Type:URO OV 20 min Future Scheduled Tests Laboratory* Prostate Specific Antigen 02/24/23 * Lipid Profile 01/27/23 [facility] Evaluation + Plan note Future Appointments Appointment Date:01/28/2023 03:00:00 PM Scheduled Provider:MAMIE ANGULO DO Location:[facility] Appointment Type:PC Wellness Annual w/Labs Appointment Date:03/03/2023 02:30:00 PM Scheduled Provider:ESPERANZA TRAVIS MD Location:UROLOGY Appointment Type:URO OV 20 min Future Scheduled Tests Laboratory* Basic Metabolic Panel 01/28/23 * Prostate Specific Antigen 02/24/23 [facility] Evaluation + Plan note Future Appointments Appointment Date:02/10/2023 04:00:00 PM Scheduled Provider: Location:[facility] Appointment Type:PC Nurse Injection Appointment Date:02/13/2023 04:00:00 PM Scheduled Provider:MAMIE ANGULO DO Location:[facility] Appointment Type:PC Wellness Annual w/Labs Appointment Date:02/17/2023 08:30:00 AM Scheduled Provider: Location:[facility] Appointment Type:NM Myocardial Spect Rest/Stress Appointment Date:03/03/2023 02:30:00 PM Scheduled Provider:ESPERANZA TRAVIS MD Location:UROLOGY Appointment Type:URO OV 20 min Diagnostic Tests Pending * Elasetase, Fecal 02/01/23 * Ova & Parasite exam 02/01/23 Future Scheduled Tests Laboratory* Basic Metabolic Panel 01/28/23 * Prostate Specific Antigen 02/24/23 * Lipid Profile 04/30/23 Radiology* NM Myocardial Spect Rest/Stress 02/17/23 [facility] Evaluation + Plan note Future Appointments Appointment Date:02/24/2023 04:00:00 PM Scheduled Provider: Location:[facility] Appointment Type:PC Nurse Injection Appointment Date:03/03/2023 02:30:00 PM Scheduled Provider:ESPERANZA TRAVIS MD Location:UROLOGY Appointment Type:URO OV 20 min Appointment Date:03/04/2023 04:00:00 PM Scheduled Provider: Location:[facility] Appointment Type:PC Nurse Injection Future Scheduled Tests Laboratory* Basic Metabolic Panel 01/28/23 * Vitamin B12 Level 04/15/23 * Lipid Profile 04/30/23 [facility] Evaluation + Plan note Future Appointments Appointment Date:03/04/2023 04:00:00 PM Scheduled Provider: Location:[facility] [place] Appointment Type:PC Nurse Injection Appointment Date:03/08/2024 03:20:00 PM Scheduled Provider:ESPERANZA TRAVIS MD Location:UROLOGY Appointment Type:URO OV Future Scheduled Tests Laboratory* Basic Metabolic Panel 01/28/23 * Prostate Specific Antigen 03/03/24 * Vitamin B12 Level 04/15/23 * Lipid Profile 04/30/23 [facility] Evaluation + Plan note Future Appointments Appointment Date:04/15/2023 04:00:00 PM Scheduled Provider:MAMIE ANGULO DO Location:[facility] [place] Appointment Type:PC OV Lab Check Appointment Date:04/23/2023 03:30:00 PM Scheduled Provider: Location:[facility] Appointment Type:CV OV Appointment Date:05/23/2023 03:00:00 PM Scheduled Provider: Location:[facility] Appointment Type:CV Procedure - Echo (Adult) Appointment Date:03/08/2024 03:20:00 PM Scheduled Provider:ESPERANZA TRAVIS MD Location:UROLOGY Appointment Type:URO OV Diagnostic Tests Pending * Complete Blood Count 03/27/23 Future Scheduled Tests Laboratory* Basic Metabolic Panel 01/28/23 * Prostate Specific Antigen 03/03/24 * Vitamin B12 Level 04/15/23 * Lipid Profile 04/30/23 * Complete Metabolic Panel 03/07/23 [facility] Evaluation + Plan note Future Appointments Appointment Date:04/15/2023 04:00:00 PM Scheduled Provider:MAMIE ANGULO DO Location:[facility] Appointment Type:PC OV Lab Check Appointment Date:04/23/2023 03:30:00 PM Scheduled Provider: Location:[facility] Appointment Type:CV OV Appointment Date:05/23/2023 03:00:00 PM Scheduled Provider: Location:[facility] Appointment Type:CV Procedure - Echo (Adult) Appointment Date:03/08/2024 03:20:00 PM Scheduled Provider:ESPERANZA TRAVIS MD Location:UROLOGY Appointment Type:URO OV Future Scheduled Tests Laboratory* Basic Metabolic Panel 01/28/23 * Prostate Specific Antigen 03/03/24 * Vitamin B12 Level 04/15/23 * Lipid Profile 04/30/23 * Complete Metabolic Panel 03/07/23 [facility] Evaluation + Plan note Future Appointments Appointment Date:04/15/2023 04:00:00 PM Scheduled Provider:MAMIE ANGULO DO Location:[facility] Appointment Type:PC OV Lab Check Appointment Date:04/23/2023 03:30:00 PM Scheduled Provider: Location:[facility] Appointment Type:CV OV Appointment Date:05/23/2023 03:00:00 PM Scheduled Provider: Location:[facility] Appointment Type:CV Procedure - Echo (Adult) Appointment Date:03/08/2024 03:20:00 PM Scheduled Provider:ESPERANZA TRAVIS MD Location:UROLOGY Appointment Type:URO OV Future Scheduled Tests Laboratory* Prostate Specific Antigen 03/03/24 * Lipid Profile 04/30/23 * Complete Metabolic Panel 03/07/23 [facility] Evaluation + Plan note Future Appointments Appointment Date:07/21/2023 03:45:00 PM Scheduled Provider:Padmini Fuller PTA 2553 Location:[facility] Appointment Type:PT Treatment - R[place]el Appointment Date:07/24/2023 03:45:00 PM Scheduled Provider:Padmini Fuller PTA 2553 Location:[facility] Appointment Type:PT Treatment - R[place]el Appointment Date:08/12/2023 02:00:00 PM Scheduled Provider:MAMIE ANGULO DO Location:[facility] Appointment Type:PC OV Lab Check Appointment Date:10/15/2023 04:00:00 PM Scheduled Provider:MAMIE ANGULO DO Location:[facility] Appointment Type:PC OV Follow Up Appointment Date:03/08/2024 03:20:00 PM Scheduled Provider:ESPERANZA TRAVIS MD Location:UROLOGY Appointment Type:URO OV Diagnostic Tests Pending * Ova + Parasite Exam 07/15/23 Future Scheduled Tests Laboratory* Potassium Level 07/25/23 * Iron Level 06/24/23 * Prostate Specific Antigen 03/03/24 * APTT Panel 07/10/23 * Prothrombin Time - Panel 07/10/23 * Vitamin D Level 06/24/23 * Complete Metabolic Panel 03/07/23 [facility] Evaluation + Plan note Future Appointments Appointment Date:08/12/2023 02:00:00 PM Scheduled Provider:MAMIE ANGULO DO Location:[facility] Appointment Type:PC OV Lab Check Appointment Date:10/15/2023 04:00:00 PM Scheduled Provider:MAMIE ANGULO DO Location:[facility] Appointment Type:PC OV Follow Up Appointment Date:03/08/2024 03:20:00 PM Scheduled Provider:ESPERANZA TRAVIS MD Location:UROLOGY Appointment Type:URO OV Future Scheduled Tests Laboratory* Iron Level 06/24/23 * Prostate Specific Antigen 03/03/24 * APTT Panel 07/10/23 * Prothrombin Time - Panel 07/10/23 * Vitamin D Level 06/24/23 * Complete Metabolic Panel 03/07/23 [facility] Evaluation + Plan note Future Appointments Appointment Date:08/12/2023 02:00:00 PM Scheduled Provider:MAMIE ANGULO DO Location:[facility] [place] Appointment Type:PC OV Lab Check Appointment Date:10/15/2023 04:00:00 PM Scheduled Provider:MAMIE ANGULO DO Location:[facility] [place] Appointment Type:PC OV Follow Up Appointment Date:03/08/2024 03:20:00 PM Scheduled Provider:ESPERANZA TRAVIS MD Location:UROLOGY Appointment Type:URO OV Future Scheduled Tests Laboratory* Potassium Level 08/09/23 * Iron Level 06/24/23 * Prostate Specific Antigen 03/03/24 * APTT Panel 07/10/23 * Prothrombin Time - Panel 07/10/23 * Vitamin D Level 06/24/23 * Complete Metabolic Panel 03/07/23 [facility] Evaluation + Plan note Future Appointments Appointment Date:08/07/2023 02:30:00 PM Scheduled Provider:TARIK MOJICA Location:[facility] Appointment Type:PC OV Lab Check Appointment Date:10/15/2023 04:00:00 PM Scheduled Provider:MAMIE ANGULO DO Location:[facility] Appointment Type:PC OV Follow Up Appointment Date:03/08/2024 03:20:00 PM Scheduled Provider:ESPERANZA TRAVIS MD Location:UROLOGY Appointment Type:URO OV Future Scheduled Tests Laboratory* Potassium Level 08/09/23 * Iron Level 06/24/23 * Prostate Specific Antigen 03/03/24 * APTT Panel 07/10/23 * Prothrombin Time - Panel 07/10/23 * Vitamin D Level 06/24/23 * Complete Metabolic Panel 03/07/23 [facility] Evaluation + Plan note Future Appointments Appointment Date:08/21/2023 04:00:00 PM Scheduled Provider: Location:[facility] Appointment Type:PC Nurse BP Check Appointment Date:10/15/2023 04:00:00 PM Scheduled Provider:MAMIE ANGULO DO Location:[facility] Appointment Type:PC OV Follow Up Appointment Date:03/08/2024 03:20:00 PM Scheduled Provider:ESPERANZA TRAVIS MD Location:UROLOGY Appointment Type:URO OV Future Scheduled Tests Laboratory* Potassium Level 08/14/23 * Iron Level 06/24/23 * Prostate Specific Antigen 03/03/24 * APTT Panel 07/10/23 * Prothrombin Time - Panel 07/10/23 * Vitamin D Level 06/24/23 * Complete Metabolic Panel 03/07/23 [facility] Evaluation + Plan note Future Appointments Appointment Date:09/10/2023 02:30:00 PM Scheduled Provider:MAMIE ANGULO DO Location:[facility] [place] Appointment Type:PC OV Follow Up Appointment Date:10/15/2023 04:00:00 PM Scheduled Provider:MAMIE ANGULO DO Location:[facility] [place] Appointment Type:PC OV Follow Up Appointment Date:03/08/2024 03:20:00 PM Scheduled Provider:ESPERANZA TRAVIS MD Location:UROLOGY Appointment Type:URO OV Future Scheduled Tests Laboratory* Iron Level 06/24/23 * Prostate Specific Antigen 03/03/24 * APTT Panel 07/10/23 * Prothrombin Time - Panel 07/10/23 * Vitamin D Level 06/24/23 * Complete Metabolic Panel 03/07/23 [facility] Evaluation note* Diagnosis Acute midline thoracic back pain- Primary documented in this encounter [facility] course Narrative No data available for this section [facility] Hospital Discharge instructions No data available for this section [facility] Note* ABDIEL JOSEPH MD: SIGN, VERIFY Event Display: VL Venous US/Doppler One Leg (for DVT). [facility] Progress note No data available for this section [facility] Summary Purpose Family History No Family History Records FoundNo Family History Records FoundNo Family History Records FoundNo Family History Records Found No data available for this section No Family History Records Found No data available for this section No data available for this section No data available for this section No data available for this section No data available for this section No data available for this section No data available for this section No data available for this section No data available for this section No data available for this section No data available for this section No Family History Records FoundNo Family History Records Found Advance Directives No Advanced Directives Records FoundNo Advanced Directives Records FoundNo Advanced Directives Records FoundNo Advanced Directives Records FoundNo Advanced Directives Records FoundNo Advanced Directives Records FoundNo Advanced Directives Records Found Reason for Referral Specialty Diagnoses / Procedures Referred By Contac t Referred To Contact XR IMAGING Diagnoses Acute midline thoracic back pain Procedures XR THORACIC GENERAL 3V AP/LAT/SWIMMERS RADEX SPINE THORACIC 3 VIEWS Rubio Gusman APRN.[employer] [address] [place] [address] Xr Imaging Referral ID Status Reason Start Date Expiration Date V isits Requested Visits Authorized [id number] Closed Auto-Generate d Referral 10/14/2022 07/13/2023 1 1 Additional Source Comments (unrecognized sect ion and content) No Status Records FoundNo Status Records FoundNo Status Records FoundNo Status Records FoundNo Status Records FoundNo Status Records FoundNo Status Records Found INFORMATION SOURCE (unrecogn ized section and content) DATE CREATED AUTHOR AUTHOR'S ORGANIZ ATION 09/22/2018 [facility] DATE CREATED AUTHOR AUTHOR'S ORGANIZ ATION 02/02/2021 [facility] DATE CREATED AUTHOR AUTHOR'S ORGANIZ ATION 02/12/2021 [facility] DATE CREATED AUTHOR AUTHOR'S ORGANIZ ATION 02/07/2023 [facility] nter DATE CREATED AUTHOR AUTHOR'S ORGANIZ ATION 09/02/2023 [facility] DATE CREATED AUTHOR AUTHOR'S ORGANIZ ATION 09/14/2023 [facility] [place] [facility] [place] Care Team (unrecognized sect ion and content) Personnel Name: KOMAL MART MD Address: [address] [place] [address] [address] [place] [address]- Care Team Personnel Name: MAMIE ANGULO DO Position: P4 Physician - Primary Care Member Role: Primary Care Physician Address: Address: [address] [place] [address]- Name: BRAYAN COLE MD Position: P4 Physician - Urologist Member Role: Urologist Address: Address: [address] [facility] [address]- Name: [place] MART MD Position: Physician Member Role: Orthopaedist Address: Address: [address] [facility] [address] [facility] [place] [address]- Care Team Related Persons Name: CATIE ZELAYA Address: Home [address] [place], [place] [phone] [place] Care Team Personnel Name: MAMIE ANGULO DO Position: P4 Physician - Primary Care Member Role: Primary Care Physician Address: Address: [address] [place] [address]- Name: BRAYAN COLE MD Position: P4 Physician - Urologist Member Role: Urologist Address: Address: [facility] [facility] [address]- Name: VIOLA MART MD Member Role: Surgeon Address: Address: [address] [place] [address]- [place] Name: [place] MART MD Position: Physician Member Role: Orthopaedist Address: Address: [address] [place] [address], [address] [facility] [place] [id number]- Care Team Related Persons Name: ACTIE ZELAYA Address: Home [address] [place], [place] [id number] [place] Care Team Personnel Name: MAMIE ANGULO DO Position: P4 Physician - Primary Care Member Role: Primary Care Physician Address: Address: [address] [place] [address]- [place] Name: BRAYAN COLE MD Position: P4 Physician - Urologist Member Role: Urologist Address: Address: [address] [place] [address] [place]rology/[place] [address]- Name: VIOLA MART MD Member Role: Surgeon Address: Address: [address] [place] [address]- Name: [place] MART MD Position: Physician Member Role: Orthopaedist Address: Address: [facility] [facility] [address], [address] [facility] [place] [address]- Care Team Related Persons Name: CATIE ZELAYA Address: Home [address] [place], [place] [phone] [place] Care Team Personnel Name: ESPERANZA TRAVIS MD Position: P4 Physician - Urologist Member Role: Urologist Address: Address: [address] [facility] [address] [place] [address]- [place] Name: MAMIE ANGULO DO Position: P4 Physician - Primary Care Member Role: Primary Care Physician Address: Address: [address] [facility] [address] [facility] [address]- [place] Name: VIOLA MART MD Member Role: Surgeon Address: Address: [address] [place] [address]- [place] Name: [place] MART MD Position: Physician Member Role: Orthopaedist Address: Address: [address] [place] [address] [address] [facility] [place] [address]- [place] Care Team Related Persons Name: GARCIACATIE Gonzales Address: [address] [facility] [address] [place] [phone] [place] Care Team Personnel Name: ESPERANZA TRAVIS MD Position: P4 Physician - Urologist Member Role: Urologist Address: Address: [address] [place], [place] [id number]- [place] Name: MAMIE ANGULO DO Position: P4 Physician - Primary Care Member Role: Primary Care Physician Address: Address: [facility] [facility] [address] [place] [address] [place] Name: VIOLA MART MD Member Role: Surgeon Address: Address: [facility] [place] [address]- [place] Name: [place] MART MD Position: Physician Member Role: Orthopaedist Address: Address: [address] [place] [address] [address] [facility] [place] [address]- Care Team Related Persons Name: CATIE ZELAYA Address: Home [address] [place], [place] [phone] [place] Care Team Personnel Name: ESPERANZA TRAVIS MD Position: P4 Physician - Urologist Member Role: Urologist Address: Address: [address] [place] [address] [place], [place] [id number]- [place] Name: MAMIE ANGULO DO Position: P4 Physician - Primary Care Member Role: Primary Care Physician Address: Address: [address] [facility] [address] [place] [address]- [place] Name: VIOLA MART MD Member Role: Surgeon Address: Address: [address] [place] [address]- [place] Name: [place] MART MD Position: Physician Member Role: Orthopaedist Address: Address: [address] [place] [address] [address] [facility] [place] [address]- [place] Name: MORIAH MARCUS PA-C Position: ED [employer] Administrator Member Role: Physician Service Car Driver w/Rx Address: Address: [address] [place] [address] [address]- Name: JOSE ORLANDO DO Position: ED Physician Member Role: Attending Physician Address: Address: [address] [place] [address] [place] Care Team Related Persons Name: CATIE ZELAYA Address: Home [address] [place], [place] [phone] [place] Care Team Personnel Name: ESPERANZA TRAVIS MD Position: P4 Physician - Urologist Member Role: Urologist Address: Address: [address] [place] [address] [address] [place] [address]- Name: MAMIE ANGULO DO Position: P4 Physician - Primary Care Member Role: Primary Care Physician Address: Address: [address] [place] [address] [address] [place] [address]- [place] Name: VIOLA MART MD Member Role: Surgeon Address: Address: [address] [place] [address]- Name: [place] MART MD Position: Physician Member Role: Orthopaedist Address: Address: [address] [place] [address] [address] [facility] [place] [address]- Care Team Related Persons Name: CATIE ZELAYA Address: Home [address] [place], [place] [phone] [place] Care Team Personnel Name: ESPERANZA TRAVIS MD Position: P4 Physician - Urologist Member Role: Urologist Address: Address: [address] [place] [address] [address] [place] [address]- [place] Name: MAMIE ANGULO DO Position: P4 Physician - Primary Care Member Role: Primary Care Physician Address: Address: [address] [place] [address] [address] [place] [address]- [place] Name: VIOLA MART MD Member Role: Surgeon Address: Address: [address] [place] [address]- [place] Name: [place] MART MD Position: Physician Member Role: Orthopaedist Address: Address: [address] [facility], [address] [facility] [place] [address]- [place] Name: REESE BURTON MD Position: P4 Physician - Cardiology Member Role: Relish Blender Address: Address: [address] [place] [address] [place] [address]- [place] Care Team Related Persons Name: CATIE ZELAYA Address: Home [address] [place] [phone] [place] Care Team Personnel Name: ESPERANZA TRAVIS MD Position: P4 Physician - Urologist Member Role: Urologist Address: Address: [address] [place] [address] [address] [place] [address]- [place] Name: MAMIE ANGULO DO Position: P4 Physician - Primary Care Member Role: Primary Care Physician Address: Address: [address] [facility] [address] [place] [address]- [place] Name: BARRON MACIAS WASHINGTON Member Role: Surgeon Address: Address: [address] [place] [address]- [place] Name: [place] MART MD Position: Physician Member Role: Orthopaedist Address: Address: [address] [place] [address], [address] [facility] [place] [address]- [place] Name: REESE BURTON MD Position: P4 Physician - Cardiology Member Role: Relish Blender Address: Address: [address] [place] [address]- [place] Name: ANGELICA MCKEON MD Position: [facility] Physician Member Role: Neurologist Address: Address: [address] [facility] [place] [address]- [place] Care Team Related Persons Name: GARCIACATIE Gonzales Address: Home [address] [place], [place] [phone] [place] Care Team Personnel Name: ESPERANZA TRAVIS MD Position: P4 Physician - Urologist Member Role: Urologist Address: Address: [address] [place] [address] [address] [place] [address]- [place] Name: MAMIE ANGULO DO Position: P4 Physician - Primary Care Member Role: Primary Care Physician Address: Address: [address] [facility] [address] [place] [address]- [place] Name: VIOLA MART MD Member Role: Surgeon Address: Address: [address] [place] [address]- [place] Name: [place] MART MD Position: Physician Member Role: Orthopaedist Address: Address: [address] [facility], [address] [facility] [place] [address]- [place] Name: REESE BURTON MD Position: P4 Physician - Cardiology Member Role: Relish Blender Address: Address: [address] [place] [address] [address] [place] [address]- [place] Name: ANGELICA MCKEON MD Position: [facility] Physician Member Role: Neurologist Address: Address: [address] [place] [address]- Care Team Related Persons Name: CATIE ZELAYA Address: [address] [phone] Care Team Personnel Name: ESPERANZA TRAVIS MD Position: P4 Physician - Urologist Member Role: Urologist Address: Address: [address] [facility] [address] [place] [address]- [place] Name: MAMIE ANGULO DO Position: P4 Physician - Primary Care Member Role: Primary Care Physician Address: Address: [address] [facility] [address] [place] [address]- [place] Name: VIOLA MART MD Member Role: Surgeon Address: Address: [address] [place] [address]- [place] Name: [place] MART MD Position: Physician Member Role: Orthopaedist Address: Address: [facility] [facility], [address] [facility] [place] [address]- [place] Name: REESE BURTON MD Position: P4 Physician - Cardiology Member Role: Relish Blender Address: Address: [address] [place], [place] [address] [address] [place] [address]- [place] Name: ANGELICA MCKEON MD Position: CV Physician Member Role: Neurologist Address: Address: [address] [place] [address]- [place] Care Team Related Persons Name: CATIE ZELAYA Address: Home [address] [place], [place] [phone] [place] Care Team Personnel Name: ESPERANZA TRAVIS MD Position: P4 Physician - Urologist Member Role: Urologist Address: Address: [address] [place] [address] [address] [place] [address]- [place] Name: MAMIE ANGULO DO Position: P4 Physician - Primary Care Member Role: Primary Care Physician Address: Address: [address] [place] [address] [address] [place] [address]- [place] Name: VIOLA MART MD Member Role: Surgeon Address: Address: [address] [place] [address]- [place] Name: [place] MART MD Position: Physician Member Role: Orthopaedist Address: Address: [address] [place] [address], [address] [facility] [place] [address]- [place] Name: REESE BURTON MD Position: P4 Physician - Cardiology Member Role: Relish Blender Address: Address: [address] [place] [address] [address] [place] [address] [facility] [place] [phone]- [place] Name: ANGELICA MCKEON MD Position: [facility] Physician Member Role: Neurologist Address: Address: [address] [place] [address] [place] [address]- Care Team Related Persons Name: CATIE ZELAYA Address: Home [address] [place] [phone] [place] Care Team Personnel Name: ESPERANZA TRAVIS MD Position: P4 Physician - Urologist Member Role: Urologist Address: Address: [address] [place] [address] [address] [place] [address]- [place] Name: MAMIE ANGULO DO Position: P4 Physician - Primary Care Member Role: Primary Care Physician Address: Address: [address] [place] [address] [address] [place] [address]- [place] Name: VIOLA MART MD Member Role: Surgeon Address: Address: [address] [place] [address]- [place] Name: [place] MART MD Position: Physician Member Role: Orthopaedist Address: Address: [address] [place] [address], [address] [facility] [place] [address]- [place] Name: REESE BURTON MD Position: P4 Physician - Cardiology Member Role: Relish Blender Address: Address: [address] [place] [address] [address] [place] [address] [facility] [place] [place] [address]- [place] Name: ANGELICA MCKEON MD Position: [facility] Physician Member Role: Neurologist Address: Address: [address] [place] [address] [place] [address]- [place] Care Team Related Persons Name: GARCIAMICHEALCATIE Address: Home [address] [place], [place] [phone] [place] Care Team (unrecognized sect ion and content) Care Team Personnel Name: BRAYAN COLE MD Position: P4 Physician - Urologist Member Role: Urologist Address: Address: [address] [place] [address] [address] [place] [id number]- [place] Name: KOMAL MART MD Member Role: Primary Care Physician Address: Address: [address] [place] [address] [address] [place] [address]- Care Team Related Persons Name: GARCIA CATIE Address: Home [address] [place] [phone] [place] Care Team Personnel Name: BRAYAN COLE MD Position: P4 Physician - Urologist Member Role: Urologist Address: Address: [address] [place] [address] [address] [place] [id number]- Name: KOMAL MART MD Member Role: Primary Care Physician Address: Address: [address] [place] [address] [address] [place] [address]- Care Team Related Persons Name: CATIE ZELAYA Address: Home [address] [place] [phone] Care Team Personnel Name: BRAYAN COLE MD Position: P4 Physician - Urologist Member Role: Urologist Address: Address: [address] [place] [address] [address] [place] [id number]- Name: KOMAL MART MD Member Role: Primary Care Physician Address: Address: [address] [place] [address] [address] [place] [address]- Care Team Related Persons Name: CATIE ZELAYA Address: Home [address] [place] [phone] [place] Care Team Personnel Name: BRAYAN COLE MD Position: P4 Physician - Urologist Member Role: Urologist Address: Address: [address] [place] [address]- Name: KOMAL MART MD Member Role: Primary Care Physician Address: Address: [address] [place] [address] [address] [place] [address]- [place] Care Team Related Persons Name: CATIE ZELAYA Address: Home [address] [facility] [place] [phone] [place] Care Team Personnel Name: MAMIE ANGULO DO Position: P4 Physician - Primary Care Member Role: Primary Care Physician Address: Address: [address] [place] [address]- Name: BRAYAN COLE MD Position: P4 Physician - Urologist Member Role: Urologist Address: Address: [address] [place], [place] [id number]- Name: [place] MART MD Position: Physician Member Role: Orthopaedist Address: Address: [address] [place] [address]- Care Team Related Persons Name: CATIE ZELAYA Address: Home [address] [place] [phone] Care Team Personnel Name: MAMIE ANGULO DO Position: P4 Physician - Primary Care Member Role: Primary Care Physician Address: Address: [address] [place] [address]- Name: BRAYAN COLE MD Position: P4 Physician - Urologist Member Role: Urologist Address: Address: [address] [place], [place] [id number]- Name: [place] MART MD Position: Physician Member Role: Orthopaedist Address: Address: [address] [place] [address]- Name: GENOVEVA MAYERS PA-C Position: ED Physician Service Car Driver Member Role: ED PA Address: Address: [address] [place] [address]- Care Team Related Persons Name: CATIE ZELAYA Address: Home [address] [facility] [place] [phone] Care Team Personnel Name: MAMIE ANGULO DO Position: P4 Physician - Primary Care Member Role: Primary Care Physician Address: Address: [address] [place] [address]- Name: BRAYAN COLE MD Position: P4 Physician - Urologist Member Role: Urologist Address: Address: [address] [place], [place] [id number]- Name: [place] MART MD Position: Physician Member Role: Orthopaedist Address: Address: [address] [place] [address]- Care Team Related Persons Name: GARCIA CATIE Address: Home [address] [place] [phone] Care Team Personnel Name: MAMIE ANGULO DO Position: P4 Physician - Primary Care Member Role: Primary Care Physician Address: Address: [address] [place], [place] [id number]- Name: BRAYAN COLE MD Position: P4 Physician - Urologist Member Role: Urologist Address: Address: [address] [place], [place] [id number]- Name: [place] MART MD Position: Physician Member Role: Orthopaedist Address: Address: [address] [place] [address]- Care Team Related Persons Name: CATIE ZELAYA Address: Home [address] [place] [phone] Care Team Personnel Name: MAMIE ANGULO DO Position: P4 Physician - Primary Care Member Role: Primary Care Physician Address: Address: [address] [place] [address]- Name: BRAYAN COLE MD Position: P4 Physician - Urologist Member Role: Urologist Address: Address: [address] [place], [place] [id number]- Name: [place] MART MD Position: Physician Member Role: Orthopaedist Address: Address: [address] [place] [address], [address] [facility] [place] [address]- Care Team Related Persons Name: CATIE ZELAYA Address: Home [address] [facility] [phone] Care Team Personnel Name: KEV MAMIE Position: P4 Physician - Primary Care Member Role: Primary Care Physician Address: Address: [address] [place] [address]- [place] Name: BRAYAN COLE MD Position: P4 Physician - Urologist Member Role: Urologist Address: Address: [address] [facility] [address] [place] [address]- Name: [place] MART MD Position: AH Physician Member Role: Orthopaedist Address: Address: [address] [facility], [address] [facility] [place] [address]- Care Team Related Persons Name: CATIE ZELAYA Address: Home [address] [place], [place] [phone] Source Comments (unrecognize d section and content) In the event this informatio n is protected by the Federal Confidentiality of Alcohol and Drug Abuse Patient Records regulations: The Federal rules restrict any use of the information to criminally investigate or prosecute any alcohol or drug abuse patient.[facility] Reason for Visit (unrecogniz ed section and content) FOR RECORDS PERTAINING TO PATIENTS WHO ARE OR HAVE BEEN ENROLLED IN A CHEMICAL DEPENDENCY/SUBSTANCEABUSE PROGRAM, SOME INFORMATION MAY BE OMITTED. This clinical summary was aggregated from multiple sources. Caution should be exercised in using it in the provision of clinical care. This summary normalizes information from multiple sources, and as a consequence, information in this document may materially change the coding, format and clinical context of patient data. In addition, data may be omitted in some cases. CLINICAL DECISIONS SHOULD BE BASED ON THE PRIMARY CLINICAL RECORDS. [employer] [facility]. provides no warranty or guarantee of the accuracy or completeness of information in this document.
[2023-09-15 06:19] VITALS: BP 148/90; PULSE 68; RESP 20; TEMP 36.2; O2SAT 97; BMI 33.7
[2023-09-15] MEDS: Lactated Ringers 1,000 ML 15 ML IV (06:29)
--- NOTE | 2023-09-15 06:30 | RAD_ITS ---
HISTORY: RADIO FREQ ABLATION L4,L5,S1, RIGHT COMPARISON: May 19, 2023 TECHNIQUE: A total of 6 fluoroscopic images were saved with additional blank image, without a radiologist present. FINDINGS: Total fluoroscopy time: 6.9 seconds Cumulative air kerma: 6.4 mGy RAD/Lumbar Spine 2 or 3 Views IMPRESSION: Fluoroscopic assistance for radiofrequency ablation. Please see operative report for additional information. Electronically Signed: Oliver Simon MD at 9:32 EST ,
[2023-09-15] MEDS: Lidocaine 1% (30 ml sdv) 30 ML Vial (07:38)
[2023-09-15] MEDS: MethylPREDNISolone Acetate 40 MG/ML Vial (07:38)
--- NOTE | 2023-09-15 07:52 | PCM.OPRPT ---
Report of Operation Date of Procedure: 09/15/23 Pre-Operative Diagnosis: Lumbosacral spondylosis, lumbosacral degenerative disc disease, lumbar facet arthropathy Post-Operative Diagnosis: Lumbosacral spondylosis, lumbosacral degenerative disc disease, lumbar facet arthropathy Surgery/Procedure Performed:: Right-sided lumbar radiofrequency ablation of the medial branch L4, L5, S1 Type of Anesthesia: MAC Estimated Blood Loss (mL): Minimal Description of Procedure: History and physical today was reviewed. Risks and benefits of procedure explained. The patient understood, agreed to the procedure and informed consent was obtained. IV inserted per routine protocol. The patient was taken to the operating room, placed in the prone position with a pillow positioned underneath the abdomen. The right side of the lower back was prepped and draped in a sterile fashion using iodine x 3. Under fluoroscopy guidance, on an oblique view, the L3 through S1 vertebral bodies were visualized. The skin and subcutaneous tissue was anesthetized with approximately 10 mL of 1% lidocaine using a 25-gauge regular needle. Under direct visualization with fluoroscopy at approximately 25-degree angle, starting on the right L3, ending on the right S1 passing through the L4-L5 using a 20-gauge 15 cm with a 10 mm curved active tip radiofrequency ablation needle the needle passed through the skin. The tip of the needle was maneuvered and directed towards the superior and medial gutter of the transverse process at the vicinity of the medial branch. Once the tip of the needle was in contact with the bone, the needle pulled approximately 2 mm up the bone. The stylet of each needle was then removed. After negative aspiration of blood with CSF and confirmation of AP as well as oblique view, radiofrequency ablation probe was then inserted at each level. Impedance was then recorded at L3 to be 329, at L4 292, at L5 255, at S1 233 ohm. Motor-evoked potential was then initiated to 1.5 volt without any motor response at each corresponding level. The probe was then removed intact and a total of 6 mL preservative-free 1% lidocaine was injected in divided doses between those 4 levels after negative aspiration of blood with CSF. The radiofrequency ablation probe was then reinserted after confirmation of AP, oblique as well as lateral view. Radiofrequency ablation was then initiated to 80 degrees Celsius for 90 seconds at each level. Once concluded, the probe was then removed intact and a total of 6 mL of preservative-free 0.25% Marcaine with 40 mg Depo-Medrol was injected in divided doses between those 4 levels. The needles were then removed intact. The patient experienced no signs or symptoms of intrathecal, intravascular injection. The patient experienced no paraesthesia. The procedure was completed without any apparent difficulty, any complication. The patient appeared to tolerate well. Sensory as well as motor exam was unchanged from prior to procedure. ASSESSMENT AND PLAN: This is a 62-year-old male with lumbosacral spondylosis, lumbosacral degenerative disc disease, lumbar facet arthropathy, status post right-sided radiofrequency ablation of the medial branch L4 through S1. The patient will continue his current medications. The patient will follow up in approximately 2 weeks for reevaluation. Complications None
[2023-09-15 07:54] VITALS: BP 148/90; BP 95/66; PULSE 73; RESP 18; TEMP 36.3; O2SAT 92
[2023-09-15 08:00] VITALS: BP 101/75; BP 148/90; PULSE 69; RESP 18; O2SAT 92
[2023-09-15 08:05] VITALS: BP 115/81; BP 148/90; PULSE 75; RESP 18; O2SAT 93
[2023-09-15 08:10] VITALS: BP 104/83; BP 148/90; PULSE 81; RESP 18; TEMP 36.7; O2SAT 93
[2023-09-15 08:18] VITALS: BP 148/90
== END 2023-09-15 08:25 | disposition home or self-care (01) ==
LOC: SDC 05:52 → AC 05:53
PROVIDERS: Referring Provider Anesthesiology Pain Medicine; Visit Provider Anesthesiology Pain Medicine
PROC: (CPT 64635; principal; 2023-09-15 07:15)
DX: M47.816 Spondylosis without myelopathy or radiculopathy, lumbar region (principal); M51.37 Other intervertebral disc degeneration, lumbosacral region; M47.817 Spondylosis without myelopathy or radiculopathy, lumbosacral region
CPT/HCPCS: 64635; 64636; 72100; 76000; J7120; J2405

== ENCOUNTER 2023-12-01 06:45 | Day surgery (SDC) | payer OTHER, SELFPAY ==
[2023-12-01 07:07] VITALS: BP 161/99; PULSE 55; RESP 16; TEMP 36.4; O2SAT 97; BMI 33.3
[2023-12-01] MEDS: Lactated Ringers 1,000 ML 15 ML IV (07:25)
--- NOTE | 2023-12-01 08:18 | RAD_ITS ---
EXAM: XR LUMBOSACRAL SPINE, 2 OR 3 VIEWS CLINICAL INDICATION: LEFT LUMBAR RADIO FREQUENCY ABLATION L4,L5,S1 TECHNIQUE: Fluoroscopic assistance utilized for needle placement at the mid and lower lumbar level. COMPARISON: No relevant prior studies available. FINDINGS: 4 fluoroscopic spot views of the lumbar spine obtained during needle placement at the L3, L4 and L5 levels. Total 10.6 seconds of fluoroscopy utilized. Radiation dose is 8.01 mGy. Refer to operative note for additional information. RAD/Lumbar Spine 2 or 3 Views IMPRESSION: As above. Electronically Signed: Luís Hunter MD at 9:11 EDT ,
[2023-12-01] MEDS: Lidocaine 1% (30 ml sdv) 30 ML Vial (08:28)
[2023-12-01] MEDS: MethylPREDNISolone Acetate 40 MG/ML Vial (08:28)
[2023-12-01 08:47] VITALS: BP 121/93; BP 161/99; PULSE 77; RESP 16; TEMP 36.4; O2SAT 96
[2023-12-01 08:50] VITALS: BP 132/96; BP 161/99; PULSE 61; RESP 16; O2SAT 93
--- NOTE | 2023-12-01 08:53 | PCM.OPRPT ---
Report of Operation Date of Procedure: 12/01/23 Pre-Operative Diagnosis: Lumbosacral spondylosis, lumbosacral degenerative disc disease, lumbar facet arthropathy Post-Operative Diagnosis: Lumbosacral spondylosis, lumbosacral degenerative disc disease, lumbar facet arthropathy Surgery/Procedure Performed:: Left-sided lumbar radiofrequency ablation of the medial branch L4, L5, S1 Type of Anesthesia: MAC Estimated Blood Loss (mL): Minimal Description of Procedure: History and physical today was reviewed. Risks and benefits of procedure explained. The patient understood, agreed to the procedure and informed consent was obtained. IV inserted per routine protocol. The patient was taken to the operating room, placed in the prone position with a pillow positioned underneath the abdomen. The left side of the lower back was prepped and draped in a sterile fashion using iodine x 3. Under fluoroscopy guidance, on an oblique view, the L3 through S1 vertebral bodies were visualized. The skin and subcutaneous tissue was anesthetized with approximately 10 mL of 1% lidocaine using a 25-gauge regular needle. Under direct visualization with fluoroscopy at approximately 25-degree angle, starting on the left L3, ending on the left S1 passing through the L4-L5 using a 20-gauge 15 cm with a 10 mm curved active tip radiofrequency ablation needle the needle passed through the skin. The tip of the needle was maneuvered and directed towards the superior and medial gutter of the transverse process at the vicinity of the medial branch. Once the tip of the needle was in contact with the bone, the needle pulled approximately 2 mm up the bone. The stylet of each needle was then removed. After negative aspiration of blood with CSF and confirmation of AP as well as oblique view, radiofrequency ablation probe was then inserted at each level. Impedance was then recorded at L3 to be 229, at L4 247, at L5 258, at S1 391 ohm. Motor-evoked potential was then initiated to 1.5 volt without any motor response at each corresponding level. The probe was then removed intact and a total of 6 mL preservative-free 1% lidocaine was injected in divided doses between those 4 levels after negative aspiration of blood with CSF. The radiofrequency ablation probe was then reinserted after confirmation of AP, oblique as well as lateral view. Radiofrequency ablation was then initiated to 80 degrees Celsius for 90 seconds at each level. Once concluded, the probe was then removed intact and a total of 6 mL of preservative-free 0.25% Marcaine with 40 mg Depo-Medrol was injected in divided doses between those 4 levels. The needles were then removed intact. The patient experienced no signs or symptoms of intrathecal, intravascular injection. The patient experienced no paraesthesia. The procedure was completed without any apparent difficulty, any complication. The patient appeared to tolerate well. Sensory as well as motor exam was unchanged from prior to procedure. ASSESSMENT AND PLAN: This is a 63-year-old male with lumbosacral spondylosis, lumbosacral degenerative disc disease, lumbar facet arthropathy, status post left-sided lumbar radiofrequency ablation of the medial branch L4 through S1. The patient will continue his current medications. The patient will follow up in approximately 2 weeks for reevaluation. Complications None
[2023-12-01 08:55] VITALS: BP 131/89; BP 161/99; PULSE 60; RESP 16; O2SAT 93
[2023-12-01 09:00] VITALS: BP 145/97; BP 161/99; PULSE 59; RESP 16; TEMP 36.2; O2SAT 97
[2023-12-01 09:06] VITALS: BP 161/99
== END 2023-12-01 09:30 | disposition home or self-care (01) ==
LOC: SDC 06:46 → AC 06:48
PROVIDERS: Visit Provider Anesthesiology Pain Medicine
PROC: (CPT 64635; principal; 2023-12-01 08:25)
DX: M47.817 Spondylosis without myelopathy or radiculopathy, lumbosacral region (principal); J44.9 Chronic obstructive pulmonary disease, unspecified; M51.37 Other intervertebral disc degeneration, lumbosacral region; M46.96 Unspecified inflammatory spondylopathy, lumbar region; I10 Essential (primary) hypertension; G47.30 Sleep apnea, unspecified; Z79.899 Other long term (current) drug therapy; Z87.891 Personal history of nicotine dependence
CPT/HCPCS: 64635; 64636; 01992; 72100; 76000; J7120; J2405